=== PATIENT | male | born 2005 | race Caucasian/White ===

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

== ENCOUNTER 2024-07-01 15:14 | Outpatient (REF) | payer OTHER, SELFPAY ==
--- OUTSIDE RECORDS SUMMARY | 2024-07-01 15:19 | XMS_ITS | Encounter Summary ---
Author Organization [facility] Address [address] [place] [phone] Phone Care Team Providers Care Siderographer Name Role Phone Rhonda Frank MD Primary Care Provider Encounter Details Date Type Department Care Team (Late st Contact Info) Description 04/20/2011 Documentation [facility] [place] Family Medicine [address] [place], [place] [id number] Family Medicine, Physician [address], [place] [phone] Social History Tobacco Use Types Packs/Day Years Used Date Smoking Tobacco: Never Assessed Sex and Gender Information Value Date Recorded Sex Assigned at Not on file Legal Sex Male 5:21 PM EDT Gender Identity Not on file Sexual Orientation Not on file documented as of this encounter Plan of Treatment Not on file documented as of this encounter Visit Diagnoses Not on filedocumented in this encounter Care Teams Siderographer Relationship Specialty Start Date End Date Rhonda Frank MD [address] [place] [address] PCP - General Pediatrics 08/28/23 Avtar Alcantara MD Consulting Physician Urology 03/12/18 documented as of this encounter
--- OUTSIDE RECORDS SUMMARY | 2024-07-01 15:19 | XMS_ITS | Encounter Summary ---
Author Organization [facility] Address [address] [place] [phone] Phone Care Team Providers Care Eligibility Supervisor Name Role Phone Rhonda Frank MD Primary Care Provider Encounter Details Date Type Department Care Team (Late st Contact Info) Description 10/04/2016 Documentation [facility] [place] [address] [place] [address] Family Medicine, Physician [address] [phone] Social History Tobacco Use Types Packs/Day Years [...] on filedocumented in this encounter Care Teams Eligibility Supervisor Relationship Specialty Start Date End Date Rhonda Frank MD [address] [place] [address] PCP - General Pediatrics 08/28/23 Avtar Alcantara MD Consulting Physician Urology 03/12/18 documented as of this encounter
--- OUTSIDE RECORDS SUMMARY | 2024-07-01 15:19 | XMS_ITS | Encounter Summary ---
Author Organization [facility] Address [address] [place] [phone] Phone Care Team Providers Care Customer Consultant Name Role Phone Rhonda Frank MD Primary Care Provider Encounter Details Date Type Department Care Team (Late st Contact Info) Description 10/04/2011 Documentation [facility] [place] Family Medicine [address] [place], [place] [phone] Family Medicine, Physician [address], [place] [phone] Social History Tobacco Use Types Packs/Day Years [...] on filedocumented in this encounter Care Teams Customer Consultant Relationship Specialty Start Date End Date Rhonda Frank MD [address] [place] [address] PCP - General Pediatrics 08/28/23 Avtar Alcantara MD Consulting Physician Urology 03/12/18 documented as of this encounter
--- OUTSIDE RECORDS SUMMARY | 2024-07-01 15:19 | XMS_ITS | Clinical Summary ---
Author Organization [facility] Address [address] [place] [id number] Phone Care Team Providers Care Reticle Printer Name Role Phone Rhonda Frank MD Primary Care Provider Allergies No known active allergies Medications clindamycin 1 % gel 4 Active levETIRAcetam 750 MG tablet Take 750 mg by mouth. 4 Active minocycline 50 MG capsule 4 Active levETIRAcetam 100 MG/ML solution GIVE 6ML'S TWICE A DAY 6 7 06/03/19 25 Discontinued minocycline 100 MG capsule Take 100 mg by mouth 2 (two) times a day. 06/03/19 25 Discontinued amoxicillin 500 MG tabletIndicatio ns:Helicobacter pylori (H. pylori) infection 2 pills twice daily for 14 days 56 tablet 4 06/03/19 25 Discontinued pantoprazole 40 MG EC tabletIndicatio ns:Helicobacter pylori (H. pylori) infection TAKE 1 TABLET BY MOUTH EVERY DAY 90 tablet 4 06/03/19 25 Discontinued Active Problems Patient Care Coordination No te Formatting of this note migh t be different from the original. Seen Neuro 03/03/2024 f/u 1 year. Was previously referred to have a Neuropsychology assessment. This was done 12/2021. A CTR was started. Advised to do a health care proxy- guardianship and apply for DDS. See full report for recommendations. Rosemarie Dougherty Consult is 06/23/24 at 11 am and testing is at 06/29/24 at 9am. Mom is aware via text confirmation He graduated High School and is in a transitional program until age 20 Seen Derm 11/27/2022 f/u in three months-had a f/u that was canceled on 04/01/2023. Notes requested -Dr Verdin Referred to general surgery by Velvet for neck abscess. Initial appt 11/2022 - Last appt 03/12/2023. Notes to be sent over. Seen Cardiology 07/02/2022 f/u in 5 2027 years with an adult Production Proofreader- Mariann Pacheco 07/12/2022 hearing evaluation- new hearing aids will be ordered f/u 1 year Rita Nicolas. Picked up hearing aids in November 2022. No appts pending. Seen [facility] 01/2022 f/u prn -Angie Flanagan. No current issues per mom Ophthalmology seen Nader 12/2021 f/u 2 years 2023- nothing scheduled and now he is booking into September 2024. Genetics appt 2022 follow up 1-2 years adult hematology 01/29/24 f/u 6 months with CBC done prior to appt Pt was last seen by Dr Pillai on Apr 13. Will f/u with pt in one year. Pt has new hearing aides. has an appt with dentist in August. --- Ivan 08/19/2019 Dr Pillai , next appt is Apr 13 at 4:30pm Dr Serna Jan, next appt is Jul 06, 2019 at 2pm, Dr Cuellar 2017 next appt is Apr 07, 2019 at 3:20pm [facility] Urology last appt was 2017, next appt is May 25, 2019 at 3:30pm appt will be with Dr Silva. [facility] Neuromuscular clinic Dr Adams last appt was Mar 2018. Had a appt in Feb and no-showed. Next appt is Jun 04, 2019 at 2:15pm Dr Mcconnell last seen November 2017, next appt is Jun 01, 2020 at 3:00pm. Sai was seen September 2018, was approved for new hearing aides. It was recommended that Chele have an Educational Audiology Assessment. Saw dentist within the last 6 months. (Narcisa Velasquez dentist for cleaning) Next appt should be September 2019. Appt dates will be mailed to rocky. Ivan 03/2019 Problem Noted Date Diagnosed Date Class 1 obesity 02/04/2024 Idiopathic thrombocytopenic purpura 01/07/2024 Overview (01/07/2024): Hospitalized 12/26 - 12/2023 for low platelets and purpura - initial plt >2000 - rec'd steroids and IVIG in hospital To follow up with adult hematology Dr Baez Assessment & Plan (06/03/2024 12:32 PM EST): Has done well over the past 6 months with no recurrence Follow up with Dr Baez in July per [facility] Assessment & Plan (01/07/2024 8:56 AM EDT): Labs today Ok to start the transitional program - note given Follow up with hematology 01/29/24 as scheduled Bicuspid aortic valve 07/07/2022 Overview (01/02/2023): 07/05/21: Noted by Cardiology for 1st time. Valve functioning normally.No stenosis or insuff. Follow up in 5 years ~ 2026 with adult cardiology. 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 Evaluated by Dr. Verdin - maintained on 1% clindamycin gel and 10% Benzoyl Peroxide topically. Assessment & Plan (06/03/2024 12:32 PM EST): Much better - follows with dermatology - rocky feels that a lot of meds given to Chele when hospitalized for the ITP helped with his scalp Assessment & Plan (05/16/2023 1:17 PM EST): Followed by Dr. Verdin. The last note I have from him is 05/31/2022. The plan was follow-up in 3 months. Mom says she was seen this past fall. Patient is on minocycline twice daily Patient was seen by general surgery in February for an I&D of a neck abscess. He had packing placed and then removed in 03/03/2023. Assessment & Plan (05/07/2022 10:57 AM EST): Followed by Dr Verdin last seen in Mar. Minocin BID for scalp. Mother stopped clinda gel with BPO BID to scalp because it was making his scalp change color. Has follow up with Derm in May Mother would like another opinion. Would like referral to derm at [facility] Assessment & Plan (11/09/2020 6:23 PM EDT): Will treat with minocycline and referring to dermatology for more definitive management such as humira. Continue minocycline (previously prescribed, 100 mg daily and if worsens increase to 100 mg BID. Assessment & Plan (10/15/2020 8:13 PM EDT): Consulted with [facility] who advised that pt see a Dermatology center (ie [facility] due to insurance) due to the complexity of chronic inflammation condition; she recommends that he be referred out for possible Humira treatment or similar agent if he is a candidate; in the interim use Minocycline again; discussed w/ mom briefly referral to derm specialist for higher level of treatment option; will discuss w/ PCP Dr. 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 Followed by Oswaldo No need for surgery at this time. P.T. recommended for stretching. At higher risk for hip arthritis as he ages Assessment & Plan (05/16/2023 1:16 PM EST): Was followed by Yuliet but has not been seen in years. Mom reports that follow-up with them as as needed only Assessment & Plan (05/07/2022 10:48 AM EST): Follow[facility] at [facility] Assessment & Plan (08/24/2020 11:34 AM EDT): Complaining more of his hips & legs. [facility] Due for follow up Family will schedule Assessment & Plan (08/19/2019 1:37 PM EDT): Due for FU at 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 No treatement recommended at this time due to Pt being asymptomatic Ortho recommends Pt stay physically active (adaptive basketball) & do P.T & stretching if he would be willing to do Assessment & Plan (05/30/2017 2:30 PM EST): Last seen by Dejan 11/2016 Seen by Dayana 2017 - no longer going. Has exercises at home Epilepsy 09/05/2016 Overview (01/07/2024): Presented to [facility] in Status epilepticus 08/28/16. Needed versed. Admitted over night in PICU. EEG showed 1 brief burst of right parietal spike & wave epileptiform discharge. Pt loaded with Keppra & sent out on Keppra 400 mg BID. Dose increased to 600 mg BID 02/2017 after abnormal EEG 12/2023 - change keppra from liquid to tablet form - level to be drawn in office and has neurology follow up for later this fall Assessment & Plan (06/03/2024 12:29 PM EST): Follow up with neurology Assessment & Plan (01/07/2024 8:54 AM EDT): To have keppra level done today and will follow up with neurology Assessment & Plan (05/16/2023 1:13 PM EST): Has transition to adult neurology. Had a virtual visit with Dr. Boogie on 12/28/2022. Reported no seizures in 6 years. On Keppra 600 mg twice daily. Follow-up with neurology in December of this year. Assessment & Plan (05/07/2022 10:51 AM EST): Followed by Neurology. Last seen this past summer. On Keppra 600 mg BID follow up in 1 year with Adult neurology Assessment & Plan (08/24/2020 11:44 AM EDT): On Keppra 600 mg(6 ml) BID , No longer taking pyridoxine Due for follow up with Dr John. Last seen 08/2018 No Sz in years Assessment & Plan (08/19/2019 1:35 PM EDT): Last note from Dr Salud John 08/19/18. On Keppra 600 mg(6 ml) BID & Pyridoxine 50 mg QD Needs FU soon. Patient's mother not sure when he should be seen No issues - no sz Assessment & Plan (06/09/2018 2:54 PM EST): Last note from Dr John from 02/04/18. Follow up this month Keppra 600 mg BID & pyridoxine 50 mg QD Had Sz in Jan 2018 & Keppra level was 0. Pt was staying with [facility] & it was clear he was not getting his meds consistently Pt was in [facility] ER 05/29/18 with Sz - Pt had not had Keppra for at least 48 hours prior to Sz due to Ins issues Assessment & Plan (05/30/2017 2:25 PM EST): On Keppra. Dose increased to 600 mg BID (from $00 mg BID) after EEG 03/07/17 Mom not sure when Neuro FU is No Sz activity Assessment & Plan (02/27/2017 12:20 PM EDT): Neurology has reached out to family & scheduled EEG 03/07/17. They will see him some time after that or adjust his seizure meds. 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 Possible T7/8 fusion. Butterfly vertebra T9. Followed at [facility]. Was referred to Neurosurg for ? Chairi 1 malformation based on MRI Head. Neurosurg felt he did not have Chiari 1 but did order MRI spine which also appeared normal - slt possibility of tethered cord ( anterior position of filum) Assessment & Plan (06/03/2024 12:40 PM EST): Followed by Dejan in the past No back pain today and nothing in the recent past Assessment & Plan (05/16/2023 1:14 PM EST): Has not been seen at [facility] in years. Follow-up is as needed only per mom Assessment & Plan (05/07/2022 10:51 AM EST): Followed at [facility] Assessment & Plan (08/24/2020 11:35 AM EDT): Mother to schedule follow up at [facility] Assessment & Plan (08/19/2019 1:36 PM EDT): Followed by [facility] Patient's mother does not know when last seen - she thinks he is due soon Assessment & Plan (06/09/2018 3:05 PM EST): Followed at [facility] Assessment & Plan (05/30/2017 2:27 PM EST): Followed by Dejan by ortho (last seen 11/2016) & urology (last seen 01/2017) Encounter for counseling for care management of patient with chronic conditions and complex health needs using nurse-based model 06/29/2014 Assessment & Plan (05/16/2023 1:16 PM EST): Met with medical home hospice aide, you Laws Assessment & Plan (08/24/2020 12:28 PM EDT): Met with [facility], you Pepe Medical home hospice aide will help the family set up follow-up with audiology, ophthalmology, [facility], neurology, endocrinology and possibly genetics. Chele needs follow-up with cardiology in 2022 Manual need follow-up with the dermatology clinic at [facility] in 1 month Assessment & Plan (06/23/2020 5:07 PM EST): MEDICAL INSURANCE OFFICE SUPERVISOR, Dariel Napier, is working today on arranging follow up with welding machine operator arc or [facility] Assessment & Plan (12/17/2019 10:09 AM EDT): Family met with MEDICAL INSURANCE OFFICE SUPERVISOR, you Pepe Assessment & Plan (05/30/2017 2:30 PM EST): Met with [facility] today Hypotonia 04/28/2009 Overview (04/01/2017): Gets PT in school Assessment & Plan (08/24/2020 12:18 PM EDT): No more P.T. due to being remote only for school. Got P.T. in school Offered to refer to outpatient physical therapy but mom prefers to wait to see what the [facility] provider recommends at his follow-up appointment Assessment & Plan (05/30/2017 2:33 PM EST): Mom not sure if still getting P.T. In school. She thinks it was stopped Intellectual functioning disability 04/28/2009 Overview (03/08/2022): In [employer] classroom at [employer]. Full SPED 12/2021: Psychology eval. Meets criteria for Intellectual disability - severe. Mother should apply to become guardian. He should remain in school with IEP till years of age Assessment & Plan (06/03/2024 12:28 PM EST): Involved with transitional program in [place] thru the school Mom started to do paperwork for guardianship but has not completed it - I urged her to do so and offered any assistance if needs medical information Assessment & Plan (05/16/2023 1:12 PM EST): Graduated out of high school but is in transition program till age 20. Significant intellectual functioning disability. Mom has been advised about getting guardianship by multiple providers. Assessment & Plan (05/07/2022 10:51 AM EST): Neuropsych eval done summer 2021. Working on Guardianship with DDS Assessment & Plan (08/24/2020 11:39 AM EDT): Remote learning - struggling due to his intellectual disability [employer] Class[employer] Mother waiting on in-person Assessment & Plan (06/09/2018 2:55 PM EST): Full SPED at [facility] Assessment & Plan (05/30/2017 2:20 PM EST): Doing well in school. Full SPED support in place VSD (ventricular septal defect) 04/28/2009 Overview (07/07/2022): Sees Dr Reyez. Closure of his VSD 01/2005. [facility]. All well. Follow up in 2022. No restrictions. No need for SBE prophylaxis. 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 Reyez, on 07/02/2022. New finding of bicuspid aortic valve with fusion of right and left coronary cusps but no evidence of stenosis or regurgitation. Follow-up in 2027. Will need transitioning to adult cardiology at that time. Assessment & Plan (05/07/2022 10:47 AM EST): Due for follow up 2022 Assessment & Plan (08/24/2020 11:44 AM EDT): Due for cards FU 2022 No need for SBE prophylaxis Assessment & Plan (08/19/2019 1:37 PM EDT): Due for cards FU 2022 No need for SBE prophylaxis Assessment & Plan (06/09/2018 2:51 PM EST): Seen by Cards 01/2018 - stable Follow up in 5 years No need for SBE prophylaxis Assessment & Plan (05/30/2017 1:59 PM EST): Last Cardiology eval 01/2013. 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 + gene testing in 2010 Dr Snider felt could hold on immunoglobulins unless sick a lot. Immune defic can be seen in adolescents (60-80% WITH IGA DEFIC & 50% with IgG defic) with KS Spine films 2010: Likely T1-T2 fusion, possible T7-T8 fusionPartial Butterfly Vertebra T9. Referred to [facility] (2015) Hypodontia ( missing teeth) - followed by Dentist. Will get implants S/P VSD & anal atresia repair Sensorineural Hearing loss - has hearing aides FU with genetics yearly 12/10/19: GH stim test done by endo was normal Seen by Endo for short stature 03/2017. Has been seen previously by them for same. Growth factors normal. They were going to repeat bone age. No studies looking at GH in Kids with Kabuki. At this time no GH. FU in 1 year Per Genetics consult 2022: If needing anything beyond local anesthesia should be cleared by anesthesiologist. Children with kabuki syndrome can have issues with intubation due to abnormal airways. There also can be some issues related to cardiac problems, immune dysfunction, and hypotonia. Assessment & Plan (06/03/2024 12:25 PM EST): Per Genetics consult 2022: If needing anything beyond local anesthesia should be cleared by anesthesiologist. Children with kabuki syndrome can have issues with intubation due to abnormal airways. There also can be some issues related to cardiac problems, immune dysfunction, and hypotonia. Also plan on follow up 1 - 2 years in 2022 so will do referral for 2024 evaluation for Chele Assessment & Plan (05/16/2023 1:50 PM EST): Was seen by genetics on 10/23/2022. Neuropsych evaluation was done by Dr. Dougherty in 2021. Guardianship was discussed with mom and she were going to work on that. Mom does not have guardianship yet. Mom is also filled out paperwork for DDS Genetics was following CBC and thyroid function tests. I do not have a copy of the results. Per Genetics consult 2022: If needing anything beyond local anesthesia should be cleared by anesthesiologist. Children with kabuki syndrome can have issues with intubation due to abnormal airways. There also can be some issues related to cardiac problems, immune dysfunction, and hypotonia. Patient is supposed to be followed by welding machine operator arc since children with kabuki syndrome and a higher risk for immunodeficiency. Patient used to be seen but pediatric infectious disease but care was [facility] Patient has not been seen in years. Because he has been having issues with scalp infection and a neck abscess I am strongly encouraging mom to contact Dr. Gupta and get him seen. Patient has hypodontia as part of his KS. Patient needs follow-up with a dentist who specializes in children/teens with developmental delay Our medical home care coordinating team will work with Chele's mother to connect him with an adult medical provider. Since he will be 18 years of age this summer it is time for us to transition his care. Assessment & Plan (05/07/2022 10:47 AM EST): Neuropsych eval done this year. Mother to work on guardianship. Family decided against growth hormone Saw neurology 11/2021. On Keppra 600 mg BID. follow up with Adult neurology in 1 year. Needs follow up with Genetics in 2022. Last seen 10/2020 Due for Cardiology eval 2022 Seen at [facility] 01/2022. Stopped AFOs - no help & he was not wearing them as much as expected. Did not see patient - no leg pains at this time. Is supposed to see welding machine operator arc yearly. Last note from Pedi ID was in 2018 - they transferred care to Dr Gupta, welding machine operator arc/caustic loader at [facility]. Has not been seen. MEDICAL INSURANCE OFFICE SUPERVISOR will help mother to schedule Assessment & Plan (08/24/2020 12:26 PM EDT): Needs yearly follow up with welding machine operator arc. Last seen by [facility]i ID 04/2019. Was to see Dr Gupta ([facility]) last year but never happened due to Coronavirus pandemic Was seen by endocrinology September 2019 by telehealth visit. They ordered growth hormone stimulation test that was completed 11/30/2019 and was normal. They did want to see Chele back in their clinic to evaluate pubertal stage and do an x-ray of his hand for bone age. This appears not to have been done. We will asked the medical home hospice aide to help set up follow-up with endocrinology. Assessment & Plan (06/23/2020 5:07 PM EST): MEDICAL INSURANCE OFFICE SUPERVISOR trying to set up yearly FU with welding machine operator arc Chele is at risk for immune deficiencies due to his Kabuki syndrome Children with Kabuki synd are at increased risk for humoral immune defects (IGA defic in 60-80% & IgG defic in up to 50 %) & also low memory B & T cells, CVID phenotypes including autoimmune cytopenias Last seen by [facility]i [facility] 2018 Assessment & Plan (12/17/2019 10:09 AM EDT): Endo is evaluating if patient would be candidate for GH Assessment & Plan (08/19/2019 1:32 PM EDT): Seen by Pedi ID 04/13/19 for yearly FU - Children with Kabuki synd are at increased risk for humoral immune defects (IGA defic in 60-80% & IgG defic in up to 50 %) & also low memory B & T cells, CVID phenotypes including autoimmune cytopenias & Thyroid disease. Repeat labs done. FU in 1 year - either with ID or with Dr Gilson Gupta to follow his immunology status Last Endo note 01/2018 Assessment & Plan (06/09/2018 3:36 PM EST): Due for Genetics FU 02/2019 Was to seen by [facility] 04/14/2018 For screening for immune defic Had normal IgG, IgA, IgM & IgE. Normal specific antibody titers to dip,tet & strep pneumo. Mildly low CD4 & CD8 t-cells with elevated ratio but normal mitogen stim & antigen stim to mitch ID felt that Pt had normal humoral & cellular immunity at this time Follow up with ID in 1 year ID suggested screening stools for Giardia, O & P due to some pudding like stools. Mom says it was never checked & she is interested in getting it done now Missed FU appt with Endo this month - mom to reschedule. Endo following to see if should get GH Or testosterone per mom. Pt is just starting puberty Assessment & Plan (05/30/2017 2:42 PM EST): Seen by Endo 02/2017 for Short Stature assoc with his José Miguel. Bone age delayed so potential of more growth. No GH recommended at this time. They will see him back in 1 year Saw genetics 01/2017 - follow up in 1 year Genetics also gave family contact info on a study being done on children with Kabuki syndrome at [facility] _ family has not made contact yet but is interested Assessment & Plan (02/27/2017 12:18 PM EDT): Followed by genetics Hearing loss of both ears Overview (04/01/2017): Followed by ENT. Has [employer] hearing aides Assessment & Plan (06/03/2024 12:26 PM EST): Referral done to [facility] for hearing aides/HT - Chele isn't wearing his hearing aides in general he tells me Assessment & Plan (05/16/2023 1:12 PM EST): Has hearing aids. Does not wear them at school. Needs follow-up with audiology. Assessment & Plan (05/07/2022 10:50 AM EST): Needs follow up at [facility] - last seen 2018. Wears hearing aides at Home but not at school Assessment & Plan (08/24/2020 11:36 AM EDT): Lost one hearing aide - waiting for replacement Due for audiology follow up Assessment & Plan (08/19/2019 1:33 PM EDT): Has bilateral hearing aides but does not like to wear them Last audio eval 09/2018. Followed at [facility] yearly Has new hearing aides - still does not like Assessment & Plan (06/09/2018 2:37 PM EST): Due for Audiology FU in Jun Assessment & Plan (05/30/2017 2:19 PM EST): Followed at [facility]. Due for Follow up. Needs new batteries for hearing aides Does not use Hearing aides as much as he should Has not seen ENT in years. Had PET in past Ptosis Overview (05/30/2017): OS. Followed by Dr Doe. Wears glasses Assessment & Plan (05/16/2023 1:13 PM EST): Followed by Dr Doe. Has glasses. Needs follow-up Assessment & Plan (05/07/2022 10:52 AM EST): Has appointment with Dr Doe 12/13/2022. Followed yearly. Seen this past summer Has glasses Assessment & Plan (08/24/2020 11:42 AM EDT): Cleared for surgery for 01/04/20 to help correct ptosis left eye but that never happened Glasses are broken Needs follow up with Dr Doe Assessment & Plan (12/17/2019 10:04 AM EDT): Cleared for surgery for 01/04/20 to help correct ptosis left eye Assessment & Plan (08/19/2019 1:34 PM EDT): Due for eye eval ? Summer 2019 or 2020 Patient's mother not sure Has new glasses - will wear them Assessment & Plan (06/09/2018 3:04 PM EST): Wears glasses Sees ophthal yearly Assessment & Plan (05/30/2017 2:21 PM EST): Due for FU this year. Family to schedule Resolved Problems Problem Noted Date Diagnosed Date Resolved Date Helicobacter pylori (H. pylori) infection 02/04/2024 06/03/2024 Overview (02/04/2024): + fecal H.pylori antigen at [facility] during hospitalization Assessment & Plan (02/04/2024 5:21 PM EDT): Will treat with triple therapy - PPI, amoxil and macrolide for 14 days Will stop the minocin while on the above therapy Recheck stool antigen in 3 - 4 weeks for test of cure Abdominal pain 06/09/2018 06/09/2018 Overview (06/09/2018): endoscopy & colonoscopy by Dr Schmidt 02/2014 showed chronic gastritis. H. Pylori neg. [facility] Assessment & Plan (06/09/2018 3:08 PM EST): No current issues Counseling and coordination of care 11/26/2017 08/24/2020 Assessment & Plan (08/19/2019 11:57 AM EDT): Followed by MEDICAL INSURANCE OFFICE SUPERVISOR at this office Assessment & Plan (06/09/2018 2:52 PM EST): Met with Makenzie Geronimo [facility], today Mom missed FU appt with Endo this month Intermittent asthma 04/28/2009 06/09/19 19 Overview (04/01/2017): Albuterol prn Assessment & Plan (06/09/2018 3:26 PM EST): No issues in years Assessment & Plan (05/30/2017 2:17 PM EST): No issues. 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 Has not been seen in years Assessment & Plan (08/24/2020 11:44 AM EDT): No issues Has not seen GI in years Assessment & Plan (06/09/2018 3:06 PM EST): Has pudding like stools Has not seen GI in years Assessment & Plan (05/30/2017 2:30 PM EST): No issues No longer seeing GI. Has not been seen in years Daytime enuresis 08/24/2020 Overview (05/30/2017): Family reports dribbling of urine & halting stream when urinating. renal US normal 2014. Followewd by Urology since 02/2015. Also seen by neurosurg - Had MRI spine that basically looked normal (07/2016) - slight possibility that forward position of filum could cause urologic issues ( ? tethered cord). He had urodynamic studies Done 12/2016 by urologist at [facility]. 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 Last seen 11/2017 - urodynamic study was OK but low volume so not sure if could miss something Mom says she gave up on that & has not followed up [facility] urology may want to try ditropan Mom will schedule FU Assessment & Plan (05/30/2017 2:32 PM EST): Seen by urology 01/2017. They want to try to repeat uroflow study. They are not sure that the study will be successful due to sensory & devel issues. They will see him back after the study to discuss Had study repeated but mom does not know result. Not sure about FU Assessment & Plan (02/27/2017 12:21 PM EDT): Being followed by Dr Sanchez (neuro surg) - Had MRI spine to r/o tethered cord - Still not completely clear. Also followed by Urology at [facility] - recently had urodynamic studies - also not clear Encounters Date Type Department Care Team Description 06/22/[address] [address] Louann Hatch MA reminer call for dev testing 06/05/2024 Patient Outreach [facility] [address] [place] [address] Louann Hatch MA Care Plan 06/03/2024 10:00 AM EST Office Visit [facility] [address] [place] [address] Rhonda Frank MD Well adult exam (Primary Dx); BMI 31.0-31.9,adult; Encounter for screening examination for sexually transmitted disease; Dietary counseling and surveillance; Exercise counseling; Kabuki syndrome; Other specified hearing loss of both ears; Intellectual functioning disability; Nonintractable epilepsy without status epilepticus, unspecified epilepsy type; Idiopathic thrombocytopenic purpura; VSD (ventricular septal defect); Need for vaccination; Dissecting cellulitis of scalp; Class 1 obesity; Congenital vertebral anomaly 06/03/2024 Telephone [facility] [address] [place] [address] Maxine Wang neuropsych referral 04/20/2024 Telephone [facility] [address] [place] [address] Rhonda Frank MD Forms/questionnaires from Last 3 Months Immunizations Immunization Administration Dates Next Due COVID-19 Pfizer, bivalent, 12+ years 05/07/2022 COVID-19 Vaccine Moderna, se asonal, 12+ years 05/16/2023 DTaP 5 12/09/2007, 6,08/08/2004,04/27,02/14/2004 H1N1 04/28/2009 HPV Vaccine 9 Valent 09/05/2015,04/27/2015,02/24 Hep A, ped/adol 01/06/2015,12/17/2013 Hep B, ped/adol 08/08/2004,04/27/2004,02/14/2004 Hib (HbOC) 03/13/2005, 5,04/27/2004,02/13 IPV 12/09/2007, 5,04/27/2004,02/13 Influenza Split 03/11/2013,01/24/2011,04/19/2010 Influenza, injectable, quadrivalent 02/13/2016 Influenza, injectable, quadr ivalent, preservative free 05/16/2023,05/07/2022,01/08/2020,07/01,03/13/2018,01/07/2017,01/06/2015 Influenza, injectable, trivalent 009,02/12/2008,03/07/2006,03/13,02/14/2005 Influenza, injectable, triva lent, preservative free 06/03/2024 MMR 12/09/2007,12/05/2004 Meningococcal Conj (Menactra) MCV4P 12/17/2019,1 Pneumococcal Conjugate 03/13/2005,2004,04/27/2004,02/13 Tdap 02/24/2015 Varicella 12/09/2007,12/05/2004 Family History Medical History Relation Name Comments ADD / ADHD Brother leigh Argueta JR Crohn's disease Brother leigh Argueta JR Anxiety disorder Father Leigh Argueta No Known Problems Mother claude Mcmahon Diabetes Other great grand father Relation Name Status Comments Brother leigh Argueta JR Alive Father Leigh Argueta Alive Mother claude Mcmahon Alive Other great grand father Alive diabetes Sister Binta Argueta Alive Social History Tobacco Use Types Packs/Day Years Used Date Smoking Tobacco: Never Assessed Hunger/Food Answer Date Recorded In the last 12 months, did y ou or your family ever eat less than you felt you should because there wasn't enough money for food? No 06/02/2024 Stable Housing Answer Date Recorded Are you worried that in the next 2 months you may not have stable housing? No 06/02/2024 Transportation Concerns Answer Date Rec orded In the last 12 months, have you or your family ever had to go without healthcare because you didn't have a way to get there? No 06/02/2024 Hazards in Home Answer Date Recorded Think about the place you li ve. Do you have problems with any of the following? Pests (mice or roaches), mold, no/not working smoke detectors, water leaks, no window guards. No 2024 Financing Utilities Answer Date Recorde d In the last 12 months, has t he electric, gas, oil, or water company threatened to shut off your services in your home? No 06/02/2024 Safety at Home Answer Date Recorded Are you or your family worried about feeling saf e in your home? No 06/02/2024 Outside Support Answer Date Recorded Do you feel that you need mo re support from other people or programs to help you care for yourself or your family? No 06/02/2024 Understanding Health Concerns Answer Da te Recorded Do you need help understandi ng your or your child's healthcare needs (diagnosis, medications, plan, etc.)? No 06/02/2024 Financing Health Concerns Answer Date R ecorded In the last 12 months, was t here a time when your child needed to see a doctor or get medications or supplies but could not because of cost? No 06/02/2024 Missing School or Work Answer Date Guy rded Did you or your child miss s chool or work because of a health problem that could have been avoided? No 06/02/2024 Child Education Answer Date Recorded Do you have concerns about y our/your child's learning or behavior in school, preschool, or daycare? No 06/02/2024 Sex and Gender Information Value Date Recorded Sex Assigned at Not on file Legal Sex Male 5:21 PM EDT Gender Identity Not on file Sexual Orientation Not on file Last Filed Vital Signs Vital Sign Reading Time Taken Comments Blood Pressure 123/78 06/03/2024 10:12 AM EST Pulse 80 02/04/2024 2:37 PM EDT Temperature 36.3 ??C (97.3 ??F) 02/04/2024 2:37 PM ED T Respiratory Rate - - Oxygen Saturation 98% 07/18/2022 9:52 AM EST Inhaled Oxygen Concentration - - Weight 71.3 kg (157 lb 3.2 oz) 06/03/2024 10:12 AM EST Height 151.1 cm (4' 11.5 ) 06/03/2024 10:[address] Body Mass Index 31.22 06/03/2024 10:12 AM EST Plan of Treatment Health Maintenance Due Date Last Done Comments Men B Vaccine (1 of 2 - Standard) 2019 COVID-19 Vaccine (5 - 2023-2 5 season) 2024 05/16/2023, 05/07/2022, 10/15/2020, Additional history exists DTaP,Tdap,and Td Vaccines (7 - Td or Tdap) 02/24/2025 02/24/2015, 12/09/2007, 07/04/2005, Additional history exists Hepatitis B Vaccines Completed 08/08/2004, 04/27/2004, 02/14/2004 HIB Vaccines Completed 03/13/2005, 01/2005, 04/27/2004, Additional history exists Pneumococcal Vaccine Completed 03/13/2005, 08/08/2004, 04/27/2004, Additional history exists IPV Vaccines Completed 12/09/2007, 07/12, 04/27/2004, Additional history exists MMR Vaccines Completed 12/09/2007, 12/05/2004 Varicella Vaccines Completed 12/09/2007, 12/05/2004 Hepatitis A Vaccines Completed 01/06/2015, 12/18/19 14 HPV Vaccines Completed 09/05/2015, 04/12, 02/24/2015 Meningococcal Vaccine Completed 12/17/2019, 015 Influenza Vaccines Completed 06/03/2024, 0 05/16/2023, 05/07/2022, Additional history exists Goals Goal Patient Goal Type Associated Problems Recent Progress Patient-Stated? Author Patient has specialist visit scheduled within recommended time frame General Louann Capellan MA Note: Mother will schedule a follow up appointment with Dr. Gupat. [facility] [address] [phone] Mom will book follow up Patient has specialist visit scheduled within recommended time frame Louann Shaver MA Note: Mother will book an appointment with a new Dentist and Robotics Testing Technician. Genetics recommended [facility] [address] [facility] [place] [phone] mom reminded again to book appointment. Patient has specialist visit scheduled within recommended time frame General Louann Capellan MA Note: Mother will book an appointment with an Robotics Testing Technician. [facility] [address] [address] [facility] [address] [phone] Patient/caregiver will connect with recommended community resources Louann Shaver MA Note: Mom has the DDS application. She will complete it with Chele and submit it for more resources for Chele. Chele must now sign it as he is over 18. Mom is working on guardianship. She has the paperwork from Rosemarie Dougherty. Chele had an evaluation 12/2021. A CTR was started. Mom will go to probate court and start the process for Guardianship. Farhat as noted in her evaluation has already completed her portion of the paperwork. Mom will check with the courts ( probate family court) to make sure it is still active. Mom will then call [facility] and make and appointment with our social science analyst Meron. Once that is completed and that section of the paperwork is done and appointment is needed with Dr Matias. Mom and I discussed this in detail. This is a brief summary for her notes. This is in process. Mom still working on getting a child day care provider for Chele and mom can not be the leasing manager and the legal guardian. PCP entered new referral for Farhat. Mom will follow up on this Patient has specialist visit scheduled within recommended time frame General Louann Capellan MA Note: Schedule follow up appointment with Dr. Boogie [facility] [phone] option 6 to reschedule. [address] Mom will book Neurology appointment Patient has specialist visit scheduled within recommended time frame General No Louann Hatch MA Note: Schedule follow up appointment with Dr. Serna Genetics for next available, Due now. New referral sent by PCP 05/2024 Patient has specialist visit scheduled within recommended time frame General No Louann Hatch MA Note: Schedule a follow up with Dr. Verdin Dermatology. Due now. [phone] Patient has specialist visit scheduled within recommended time frame General No Louann Hatch MA Note: Schedule a follow up with Speech and Hearing. Due now. [phone] Mom will keep appointment. He will need a hearing evaluation. He is not wearing hearing aids. Patient has specialist visit scheduled within recommended time frame General No Louann Hatch MA Note: Schedule a follow up with Dr. Doe- Ophthalmology Due now. His office is booking into September 2024 so call now. [phone] Patient has specialist visit scheduled within recommended time frame General Louann Capellan MA Note: Mom will schedule a follow up with Hematology for 07/2024. Will need repeat labs prior to the appointment. Dr. Bradford [address] [place] [address] Patient/family is comfortable self-managing illnesses and chronic conditions Care Plan Patient/family needs help managing the patient? 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 Shawn has DDS Care Plan Patient/family needs help getting DDS No Louann Hatch MA Note: 2022 sb spoke with mom at the 09/13/2022 visit with sibling. Mom has not completed the DDS application and has not started on the CTR for guardianship given to her by [facility]. Spoke with mom and she will work on the application for DDS Reminded mom again about completing this paperwork. Mom has Guardianship Care Plan Mom does not have Guardianship No Louann Hatch MA Note: Mom is still working on this. Since mom is his caregiver she can not be his guardian. She is working on deciding who can qualify as his caregiver so she can be his legal guardian. [facility] will track new referral sent 05/2024. Mom did not follow through with guardianship. Had the CTR first part completed and stopped process. 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 He needs a follow up. [facility] will track new referral sent 05/2024. Chele is not wearing his hearing aids. Procedures * Due to [place] state law, this organization might not be sharing sensitive test results. Procedure Name Priority Date/Time Associated Diagnosis Comments BRIEF BEHAVIORAL ASSESSMENT - NORMAL(PSC,PHQ9,VANDERBI LT,ETC) Routine 06/03/2024 10:26 AM EST Well adult exam EPSDT - ADDITIONAL SERVICES FOR STATE FUNDED INSURANCE Routine 06/03/2024 10:26 AM EST Well adult exam from Last 3 Months Additional Health Concerns Active Problems Noted Date Diagnosed Date Patient/family needs help ma naging the patient? 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 Will help mom manage care. Will help mom with managing Specialists. Patient/family needs help getting DDS 02/26/2024 Note: Will mail home application for DDS Mom does not have Guardianship 05/09/2022 Insurance C/O [place], [place] [id number] [place] [address] NON PCC [facility] Care Teams Reticle Printer Relationship Specialty Start Date End Date Rhonda Frank MD [address] [place] [address] PCP - General Pediatrics 08/28/23 Avtar Alcantara MD Consulting Physician Urology 03/12/18
--- OUTSIDE RECORDS SUMMARY | 2024-07-01 15:19 | XMS_ITS | Encounter Summary ---
Author Organization [facility] Address [address] [place] [address] Phone Care Team Providers Care Business Services Clerk Name Role Phone Rhonda Frank MD Primary Care Provider Encounter Details Date Type Department Care Team (Late st Contact Info) Description 01/09/2012 Documentation [facility] [place] Family Medicine [address] [place] [address] Family Medicine, Physician [address], [place] [phone] Social History Tobacco Use Types Packs/Day Years [...] on filedocumented in this encounter Care Teams Business Services Clerk Relationship Specialty Start Date End Date Rhonda Frank MD [address] [place] [address] PCP - General Pediatrics 08/28/23 Avtar Alcantara MD Consulting Physician Urology 03/12/18 documented as of this encounter
--- OUTSIDE RECORDS SUMMARY | 2024-07-01 15:19 | XMS_ITS | Encounter Summary ---
Author Organization [facility] Address [address] [place] [address] Phone Care Team Providers Care Cloth Mercerizer Back Tender Name Role Phone Rhonda Frank MD Primary Care Provider [phone] Encounter Details Date Type Department Care Team (Late st Contact Info) Description 09/25/2011 Documentation [facility] [place] Family Medicine [address] [place] [address] Family Medicine, Physician [address] [place], [place] [phone] Social History Tobacco Use Types Packs/Day Years [...] on filedocumented in this encounter Care Teams Cloth Mercerizer Back Tender Relationship Specialty Start Date End Date Rhonda Frank MD [address] [place] [address] PCP - General Pediatrics 08/28/23 Avtar Alcantara MD Consulting Physician Urology 03/12/18 documented as of this encounter
--- OUTSIDE RECORDS SUMMARY | 2024-07-01 15:19 | XMS_ITS | Encounter Summary ---
Author Organization [facility] Address [address] [place] [address] Phone Care Team Providers Care Buckle Stringer Name Role Phone Rhonda Frank MD Primary Care Provider Encounter Details Date Type Department Care Team (Late st Contact Info) Description 06/28/2016 Documentation [facility] [place] [address] [place] [address] Family Medicine, Physician [address] [place], [place] [phone] Social History Tobacco Use Types Packs/Day Years [...] on filedocumented in this encounter Care Teams Buckle Stringer Relationship Specialty Start Date End Date Rhonda Frank MD [address] [place] [address] PCP - General Pediatrics 08/28/23 Avtar Alcantara MD Consulting Physician Urology 03/12/18 documented as of this encounter
--- OUTSIDE RECORDS SUMMARY | 2024-07-01 15:19 | XMS_ITS | Encounter Summary ---
Author Organization [facility] Address [address] [place] [address] Phone Care Team Providers Care Parking Meter Attendant Name Role Phone Rhonda Frank MD Primary Care Provider Encounter Details Date Type Department Care Team (Late st Contact Info) Description 10/01/2012 Documentation [facility] [place] Family Medicine [address] [place] [address] Family Medicine, Physician [address] [place] [phone] Social History Tobacco Use Types Packs/Day Years [...] on filedocumented in this encounter Care Teams Parking Meter Attendant Relationship Specialty Start Date End Date Rhonda Frank MD [address] [place] [address] PCP - General Pediatrics 08/28/23 Avtar Alcantara MD Consulting Physician Urology 03/12/18 documented as of this encounter
--- OUTSIDE RECORDS SUMMARY | 2024-07-01 15:19 | XMS_ITS | Encounter Summary ---
Author Organization [facility] Address [address] [place] [address] Phone Care Team Providers Care Mud Engineer Name Role Phone Rhonda Frank MD Primary Care Provider Encounter Details Date Type Department Care Team (Late st Contact Info) Description 01/19/2015 Documentation [facility] [place] [address] [place] [address] Family Medicine, Physician [address] [place] [phone] Social History Tobacco Use Types Packs/Day Years [...] on filedocumented in this encounter Care Teams Mud Engineer Relationship Specialty Start Date End Date Rhonda Frank MD [address] [place] [address] PCP - General Pediatrics 08/28/23 Avtar Alcantara MD Consulting Physician Urology 03/12/18 documented as of this encounter
--- OUTSIDE RECORDS SUMMARY | 2024-07-01 15:19 | XMS_ITS | Encounter Summary ---
Author Organization [facility] Address [address] [place] [address] Phone Care Team Providers Care Heating Fixture Tender Name Role Phone Rhonda Frank MD Primary Care Provider Encounter Details Date Type Department Care Team (Late st Contact Info) Description 01/02/2017 [place]ation [facility] [place] [address] [place] [address] Family Medicine, Physician [address] [place], [place] [phone] Social History Tobacco Use Types Packs/Day Years [...] on filedocumented in this encounter Care Teams Heating Fixture Tender Relationship Specialty Start Date End Date Rhonda Frank MD [address] [place] [address] PCP - General Pediatrics 08/28/23 Avtar Alcantara MD Consulting Physician Urology 03/12/18 documented as of this encounter
--- OUTSIDE RECORDS SUMMARY | 2024-07-01 15:19 | XMS_ITS | Encounter Summary ---
Author Organization [facility] Address [address] [place] [address] Phone Care Team Providers Care Calciner Operator Helper Name Role Phone Rhonda Frank MD Primary Care Provider Encounter Details Date Type Department Care Team (Late st Contact Info) Description 04/09/2011 Documentation [facility] [place] Family Medicine [address] [place] [address] Family Medicine, Physician [address] [place], [place] [phone] Social History Tobacco Use Types Packs/Day Years [...] on filedocumented in this encounter Care Teams Calciner Operator Helper Relationship Specialty Start Date End Date Rhonda Frank MD [address] [place] [address] PCP - General Pediatrics 08/28/23 Avtar Alcantara MD Consulting Physician Urology 03/12/18 documented as of this encounter
--- OUTSIDE RECORDS SUMMARY | 2024-07-01 15:19 | XMS_ITS | Encounter Summary ---
Author Organization [facility] Address [address] [place] [address] Phone Care Team Providers Care Press Maintainer Name Role Phone Rhonda Frank MD Primary Care Provider Encounter Details Date Type Department Care Team (Late st Contact Info) Description 08/13/2016 Documentation [facility] [place] [address] [place] [address] Family Medicine, Physician [address] [place] [phone] Social History Tobacco Use Types Packs/Day Years [...] on filedocumented in this encounter Care Teams Press Maintainer Relationship Specialty Start Date End Date Rhonda Frank MD [address] [place] [address] PCP - General Pediatrics 08/28/23 Avtar Alcantara MD Consulting Physician Urology 03/12/18 documented as of this encounter
--- OUTSIDE RECORDS SUMMARY | 2024-07-01 15:19 | XMS_ITS | Encounter Summary ---
Author Organization [facility] Address [address] [place] [address] Phone Care Team Providers Care Facility Rehab Director Name Role Phone Rhonda Frank MD Primary Care Provider Encounter Details Date Type Department Care Team (Late st Contact Info) Description 01/20/2014 Documentation [facility] [place] Medicine [address] [place] [address] Family Medicine, Physician [address] [place], [place] [phone] Social History Tobacco Use Types Packs/Day Years [...] on filedocumented in this encounter Care Teams Facility Rehab Director Relationship Specialty Start Date End Date Rhonda Frank MD [address] [place] [address] PCP - General Pediatrics 08/28/23 Avtar Alcantara MD Consulting Physician Urology 03/12/18 documented as of this encounter
--- OUTSIDE RECORDS SUMMARY | 2024-07-01 15:19 | XMS_ITS | Encounter Summary ---
Author Organization [facility] Address [address] [place] [phone] Phone Care Team Providers Care Curb Builder Name Role Phone Rhonda Frank MD Primary Care Provider Encounter Details Date Type Department Care Team (Late st Contact Info) Description 11/03/2012 Documentation [facility] [place] [address] [place] [address] Family Medicine, Physician [address] [place], [place] [id number] Social History Tobacco Use Types Packs/Day Years [...] on filedocumented in this encounter Care Teams Curb Builder Relationship Specialty Start Date End Date Rhonda Frank MD [address] [place] [address] PCP - General Pediatrics 08/28/23 Avtar Alcantara MD Consulting Physician Urology 03/12/18 documented as of this encounter
--- OUTSIDE RECORDS SUMMARY | 2024-07-01 15:19 | XMS_ITS | Encounter Summary ---
Author Organization [facility] Address [address] [place] [phone] Phone Care Team Providers Care Plate Grainer Name Role Phone Rhonda Frank MD Primary Care Provider Encounter Details Date Type Department Care Team (Late st Contact Info) Description 06/28/2016 Documentation [facility] [place] [address] [place] [address] Family Medicine, Physician [address], [place] [id number] Social History Tobacco Use Types Packs/Day Years [...] on filedocumented in this encounter Care Teams Plate Grainer Relationship Specialty Start Date End Date Rhonda Frank MD [address] [place] [address] PCP - General Pediatrics 08/28/23 Avtar Alcantara MD Consulting Physician Urology 03/12/18 documented as of this encounter
--- OUTSIDE RECORDS SUMMARY | 2024-07-01 15:19 | XMS_ITS | Encounter Summary ---
Author Organization [facility] Address [address] [place] [address] Phone Care Team Providers Care Supervisor Production Department Name Role Phone Rhonda Frank MD Primary Care Provider Encounter Details Date Type Department Care Team ([facility] Contact Info) Description 06/05/2017 Patient Outreach [facility] [address] [place] [address] Denia Matias MD [address] [place] [address] Social History Tobacco Use Types Packs/Day Years [...] on filedocumented in this encounter Care Teams Supervisor Production Department Relationship Specialty Start Date End Date Rhonda Frank MD [address] [place] [address] PCP - General Pediatrics 08/28/23 Avtar Alcantara MD Consulting Physician Urology 03/12/18 documented as of this encounter
--- OUTSIDE RECORDS SUMMARY | 2024-07-01 15:19 | XMS_ITS | Encounter Summary ---
Author Organization [facility] Address [address] [place] [address] Phone Care Team Providers Care Household Worker Name Role Phone Rhonda Frank MD Primary Care Provider [phone] Encounter Details Date Type Department Care Team (Late st Contact Info) Description 08/27/2009 Documentation [facility] [place] [address] [place] [address] Family Medicine, Physician [address], [place] [id number] Social History Tobacco Use Types Packs/Day Years [...] on filedocumented in this encounter Care Teams Household Worker Relationship Specialty Start Date End Date Rhonda Frank MD [address] [place] [address] PCP - General Pediatrics 08/28/23 Avtar Alcantara MD Consulting Physician Urology 03/12/18 documented as of this encounter
--- OUTSIDE RECORDS SUMMARY | 2024-07-01 15:19 | XMS_ITS | Encounter Summary ---
Author Organization [facility] Address [address] [place] [address] Phone Care Team Providers Care Internal Grinder Set Up Operator Name Role Phone Rhonda Frank MD Primary Care Provider [phone] Reason for Visit * Reason Comments Care Plan Encounter Details Date Type Department Care Team ([facility] Contact Info) Description 06/05/2024 Patient Outreach [facility] [place] [address] [place] [address] Louann Hatch PA [address] [place] [address] Care Plan Social History Tobacco Use Types Packs/Day Years [...] on file documented as of this encounter Progress Notes * Louann Hatch MA - 06/05/2024 4:04 PM EST Chele had his PE 06/03/2024. Updating his care plan. New referrals have been entered. [facility] [place] [place]hip again. documented in this encounter Plan of Treatment Not on file documented as of this encounter Goals Goal Patient Goal Type Associated Problems Recent Progress Patient-Stated? Author Patient has specialist visit scheduled within recommended time frame General Louann Capellan MA Note: Mother will schedule a follow up appointment with Dr. Gupta. [facility] [address] [address] Mom will book follow up Patient has specialist visit scheduled within recommended time frame General Louann Capellan MA Note: Mother will book an appointment with a new Dentist and Tree Care Foreman. Genetics recommended [facility] [address] [facility] T[place] [phone] mom reminded again to book appointment. Patient has specialist visit scheduled within recommended time frame General No Louann Hatch MA Note: Mother will book an appointment with an Tree Care Foreman. [facility] [address] [place] [address] [facility] [address] [id number] Patient/caregiver will connect with recommended community resources General No Louann Hatch MA Note: Mom has the DDS application. She will complete it with Chele and submit it for more resources for Chele. Chele must now sign it as he is over 18. Leti is working on guardianship. She has the [...] is still active. Mom will then call [facility] and make and appointment with our psychiatric social worker Meron. Once that is completed and that section of the paperwork is done and appointment is needed with Dr Matias. Mom and I discussed this in detail. This is a brief summary for her notes. This is in process. Mom still working on getting a wound care technician for Chele and mom can not be the studio operator and the legal guardian. PCP entered new referral for [place]. Mom will follow up on this Patient has specialist visit scheduled within recommended time frame General Louann Capellan MA Note: Schedule follow up appointment with Dr. [facility] [phone] option 6 to reschedule. [address] Mom will book Neurology appointment Patient [...] up with Dr. Verdin Dermatology. Due now. [phone] Patient has specialist visit scheduled within recommended time frame General No Louann Hatch MA Note: Schedule a follow up with Speech and Hearing. Due now. [phone] Mom will keep appointment. He will need a hearing evaluation. He is not wearing hearing aids. Patient has specialist visit scheduled within recommended time frame General No Louann Hatch MA Note: Schedule a follow up with Dr. Doe- Ophthalmology Due now. His office is booking into September 2024 so call now. [phone] Patient has specialist visit scheduled within recommended time frame General No Louann Hatch MA Note: Mom will schedule a follow up with Hematology for 07/2024. Will need repeat labs prior to the appointment. Dr. Bradford [address] [place] [phone] Patient/family is comfortable self-managing illnesses and chronic [...] so she can be his legal guardian. [facility] [place] new referral sent 05/2024. Mom [...] November 2022. He needs a follow up. [facility] [place] new referral sent 05/2024. Chele is not wearing his hearing aids. documented as of this encounter Visit Diagnoses Not on filedocumented in this encounter Additional Health Concerns Active Problems Noted Date [...] DDS Mom does not have Guardianship 05/09/2022 documented as of this encounter Care Teams Internal Grinder Set Up Operator Relationship Specialty Start Date End Date Rhonda Frank MD [address] [place] [address] PCP - General Pediatrics 08/28/23 Avtar Alcantara MD Consulting Physician Urology 03/12/18 documented as of this encounter
--- OUTSIDE RECORDS SUMMARY | 2024-07-01 15:19 | XMS_ITS | Encounter Summary ---
Author Organization [facility] Address [address] [place] [address] Phone Care Team Providers Care Compensation/Benefits Specialist Name Role Phone Rhonda Frank MD Primary Care Provider Encounter Details Date Type Department Care Team ([facility] Contact Info) Description 07/02/2017 Patient Outreach [facility] [address] [place] [address] Denia Matias MD [address] [place] [address] Social History Tobacco Use Types Packs/Day Years [...] on filedocumented in this encounter Care Teams Compensation/Benefits Specialist Relationship Specialty Start Date End Date Rhonda Frank MD [address] [place] [address] PCP - General Pediatrics 08/28/23 Avtar Alcantara MD Consulting Physician Urology 03/12/18 documented as of this encounter
--- OUTSIDE RECORDS SUMMARY | 2024-07-01 15:19 | XMS_ITS ---
Care Plan Created on: July 01, 2024 Shawn Argueta : 2005 Sex: Male Author Organization [facility] Address [address] [place] [id number] Phone Care Team Providers Care Pastry Cook Name Role Phone Rhonda Frank MD Primary Care Provider Active Problems Patient Care Coordination No te [...] in 5 2027 years with an adult Velvet Weaver- Mariann Pacheco 07/12/2022 hearing evaluation- new hearing aids will be ordered f/u 1 year Rita Nicolas. Picked up hearing aids in November 2022. No appts pending. Seen [facility] 01/2022 f/u prn -Angie Flanagan. No current [...] appt is Apr 07, 2019 at 3:20pm [facility] Urology last appt was 2017, next appt is May 25, 2019 at 3:30pm appt will be with Dr Silva. [facility] Neuromuscular clinic Dr Adams last appt was Mar 2018. Had a appt in Feb and no-showed. Next appt is Jun 04, 2019 at 2:15pm Dr Mcconnell last seen November 2017, next appt is Jun 01, 2020 at 3:00pm. Gibbs was seen September 2018, was approved for new hearing aides. It was recommended that Chele have an Educational Audiology Assessment. Saw dentist within the last 6 months. (Narcisa Velasquez dentist for cleaning) Next appt should be September 2019. Appt dates will be [facility] Ivan 03/2019 Problem Noted Date Diagnosed Date [...] up with Dr Baez in July per [facility] Assessment & Plan (01/07/2024 8:56 AM EDT): [...] Much better - follows with dermatology - mom feels that a lot of meds given [...] opinion. Would like referral to derm at [facility] Assessment & Plan (11/09/2020 6:23 PM EDT): Will treat with minocycline and referring to dermatology for more definitive management such as humira. Continue minocycline (previously prescribed, 100 mg daily and if worsens increase to 100 mg BID. 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 Followed by [facility]. No need for surgery at this time. P.T. recommended for stretching. At higher risk for hip arthritis as he ages Assessment & Plan (05/16/2023 1:16 PM EST): Was followed by [facility] but has not been seen in years. Mom reports that follow-up with them as as needed only Assessment & Plan (05/07/2022 10:48 AM EST): Followed at [facility] Assessment & Plan (08/24/2020 11:34 AM EDT): Complaining more of his hips & legs. 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 Possible T7/8 fusion. Butterfly vertebra T9. Followed at [facility]. Was referred to Neurosurg for ? Chairi 1 malformation based on MRI Head. Neurosurg felt he did not have Chiari 1 but did order MRI spine which also appeared normal - slt possibility of tethered cord ( anterior position of filum) Assessment & Plan (06/03/2024 12:40 PM EST): Followed by [facility] in the past No back pain today and nothing in the recent past Assessment & Plan (05/16/2023 1:14 PM EST): Has not been seen at [facility] in years. Follow-up is as needed only per mom Assessment & Plan (05/07/2022 10:51 AM EST): Followed at [facility] Assessment & Plan (08/24/2020 11:35 AM EDT): Mother to schedule follow up at [facility] Assessment & Plan (08/19/2019 1:36 PM EDT): Followed by [facility] Patient's mother does not know when last seen - she thinks he is due soon Assessment & Plan (06/09/2018 3:05 PM EST): Followed at [facility] Assessment & Plan (05/30/2017 2:27 PM EST): Followed by [facility] by ortho (last seen 11/2016) & urology (last seen 01/2017) Encounter for counseling for care management of patient with chronic conditions and complex health needs using nurse-based model 06/29/2014 Assessment & Plan (05/16/2023 1:16 PM EST): Met with medical rn home health, you Laws Assessment & Plan (08/24/2020 12:28 PM EDT): Met with [facility], Dariel Napier, today Medical rn home health will help the family set up follow-up with audiology, ophthalmology, [facility], neurology, endocrinology and possibly genetics. Chele needs follow-up with cardiology in 2022 Manual need follow-up with the dermatology clinic at [facility] in 1 month Assessment & Plan (06/23/2020 5:07 PM EST): MEDICAL WINTER INTERN, Dariel Napier, is working today on arranging follow up with cat sitter or Pedi ID Assessment & Plan (12/17/2019 10:09 AM EDT): Family met with MEDICAL WINTER INTERN, Dariel Napier , today Assessment & Plan (05/30/2017 2:30 PM EST): Met with [facility] today Hypotonia 04/28/2009 Overview (04/01/2017): Gets PT in school Assessment & Plan (08/24/2020 12:18 PM EDT): No more P.T. due to being remote only for school. Got P.T. in school Offered to refer to outpatient physical therapy but mom prefers to wait to see what the [facility] provider recommends at his follow-up appointment Assessment & Plan (05/30/2017 2:33 PM EST): Mom not sure if still getting P.T. In school. She thinks it was stopped Intellectual functioning disability 04/28/2009 Overview (03/08/2022): In [employer] classroom at [employer]. Full SPED 12/2021: Psychology eval. Meets criteria for Intellectual disability - severe. Mother should apply to become guardian. He should remain in school with IEP till 20 years of age Assessment & Plan (06/03/2024 12:28 PM EST): Involved with transitional program in [place] thru the school Mom started to do [...] (06/09/2018 2:55 PM EST): Full SPED at [facility] Assessment & Plan (05/30/2017 2:20 PM EST): Doing well in school. Full SPED support in place VSD (ventricular septal defect) 04/28/2009 Overview (07/07/2022): Sees Dr Reyez. Closure of his VSD 01/2005. Seen by [facility] 01/2018. All well. Follow up in 2022. 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 Stopped AFOs - no help & he was not wearing them as much as expected. Did not see patient - no leg pains at this time. Is supposed to see cat sitter yearly. Last note from Pedi ID was in 2018 - they transferred care to Dr Gupta, cat sitter/enrollment representative at [facility]. Has not been seen. MEDICAL WINTER INTERN will help mother to schedule Assessment & Plan (08/24/2020 12:26 PM EDT): Needs yearly follow up with cat sitter. Last seen by [facility] 04/2019. Was to see Dr Gupta ([facility]) last year but never happened due to [...] been done. We will asked the medical rn home health to help set up follow-up with endocrinology. 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 Has bilat hearing aides Assessment & Plan (06/03/2024 12:26 PM EST): Referral done to [facility] for hearing aides/HT - Chele isn't wearing his hearing aides in general he tells me Assessment & Plan (05/16/2023 1:12 PM EST): Has hearing aids. Does not wear them at school. Needs follow-up with audiology. Assessment & Plan (05/07/2022 10:50 AM EST): Needs follow up at [facility] - last seen 2018. Wears hearing aides at Home but not at school Assessment & Plan (08/24/2020 11:36 AM EDT): Lost one hearing aide - waiting for replacement Due for audiology follow up Assessment & Plan (08/19/2019 1:33 PM EDT): Has bilateral hearing aides but does not like to wear them Last audio eval 09/2018. Followed at [facility] yearly Has new hearing aides - still does not like Assessment & Plan (06/09/2018 2:37 PM EST): Due for Audiology FU in Jun Assessment & Plan (05/30/2017 2:19 PM EST): Followed at [facility]. Due for Follow up. Needs new batteries [...] Overview (02/04/2024): + fecal H.pylori antigen at [facility] during hospitalization Assessment & Plan (02/04/2024 5:21 PM EDT): Will treat with triple therapy - PPI, amoxil and macrolide for 14 days Will stop the minocin while on the above therapy Recheck stool antigen in 3 - 4 weeks for test of cure Abdominal pain 06/09/2018 06/09/2018 Overview (06/09/2018): endoscopy & colonoscopy by Dr Schmidt 02/2014 showed chronic gastritis. H. Pylori neg. Prilosec started Assessment & Plan (06/09/2018 3:08 PM EST): No current issues Counseling and coordination of care 11/26/2017 08/24/2020 Assessment & Plan (08/19/2019 11:57 AM EDT): Followed by MEDICAL WINTER INTERN at this office Assessment & Plan (06/09/2018 2:52 PM EST): Met with Makenzie Geronimo [facility], today Mom missed FU appt with Endo [...] urodynamic studies Done 12/2016 by urologist at [facility]. Storage phase of urodynamics was normal, there [...] on that & has not followed up [facility] urology may want to try ditropan Mom [...] completely clear. Also followed by Urology at [facility] - recently had urodynamic studies - also not clear Additional Health Concerns Active Problems Noted Date [...] DDS Mom does not have Guardianship 05/09/2022 Goals Goal Patient Goal Type Associated Problems Recent Progress Patient-Stated? Author Patient has specialist visit scheduled within recommended time frame General Louann Capellan MA Note: Mother will schedule a follow up appointment with Dr. Gupta. [facility] Immun[facility] [address] [id number] Mom will book follow up Patient has specialist visit scheduled within recommended time frame General No Louann Hatch MA Note: Mother will book an appointment with a new Dentist and Winter Intern. Genetics recommended [facility] [address] [place], [place] [phone] mom reminded again to book appointment. Patient has specialist visit scheduled within recommended time frame General No Louann Hatch MA Note: Mother will book an appointment with an Winter Intern. [facility] [address] [place] [address] [facility] [address] [address] Patient/caregiver will connect with recommended community resources [...] is still active. Mom will then call [facility] and make and appointment with our family welfare social work professor Meron. Once that is completed and that section of the paperwork is done and appointment is needed with Dr Matias. Mom and I discussed this in detail. This is a brief summary for her notes. This is in process. Mom still working on getting a pediatric critical care nurse for Chele and mom can not be the goggles assembler and the legal guardian. PCP entered new referral for [facility]. Mom will follow up on this Patient has specialist visit scheduled within recommended time frame General Louann Capellan MA Note: Schedule follow up appointment with Dr. Boogie Neu[facility] [phone] option 6 to reschedule. [address] Mom will book Neurology appointment Patient has specialist visit scheduled within recommended time frame General Louann Capellan MA Note: Schedule follow up appointment with Dr. Serna Genetics for next available, Due now. New referral sent by PCP 05/2024 Patient has specialist visit scheduled within recommended time frame General Louann Capellan MA Note: Schedule a follow up with Dr. Verdin Dermatology. Due now. [phone] Patient has specialist visit scheduled within recommended time frame General Louann aCpellan MA Note: Schedule a follow up with Speech and Hearing. Due now. [phone] Mom will keep appointment. He will need a hearing evaluation. He is not wearing hearing aids. Patient has specialist visit scheduled within recommended time frame General Louann Capellan MA Note: Schedule a follow up with Dr. Doe- Ophthalmology Due now. His office is booking into September 2024 so call now. [phone] Patient has specialist visit scheduled within recommended time frame General No Louann Hatch MA Note: Mom will schedule a follow up with Hematology for 07/2024. Will need repeat labs prior to the appointment. Dr. Bradford [facility] [place] [address] Patient/family is comfortable self-managing illnesses and chronic [...] so she can be his legal guardian. [facility] will track new referral sent 05/2024. Mom [...] November 2022. He needs a follow up. [facility] will track new referral sent 05/2024. Chele is not wearing his hearing aids. Interventions Care Plan Interventions Intervention Entry Date Outcome Tips for wearing hearing aids 06/19/2022 Note: Spoke with mom. Patient does not like wearing his hearing aids. He lost one also. Mom will work with Audiology to find a more comfortable pair. Reviewed some tips to help with the transition to wear them all the time for better hearing. Tips for getting used to hearing aids. 1. Wear them at home first Start by wearing your hearing aids at home or in other quiet listening environments. Reading aloud or talking to your pet can also help you get used to your own voice, too. Mom will try a reward system to help him want to keep them on. 2. Give yourself homework- at home 3. Take breaks Wear them a few hours the first day, then a few more hours every day after that. Gradually increase the number of hours you wear them per day. 4. Attend follow-up visits You? ll want to see your supervisor wool shearing for as many follow-up visits as you need to fine-tune the sounds you? re hearing, adjust the fit in your ear and talk about the situations that are most challenging for you. Most people visit their microfilm clerk about two weeks after their first fitting to get their devices fine-tuned and possibly adjust the volume. 5. Anticipate some frustration, especially with background noise Hearing aids flood your ears with sounds you didn't notice before, and it can be a bit of sound overload. For example, the humming of the refrigerator--a background noise that most people seldom notice--might seem very loud or unbearable. Again, wear for 15 minutes at a time to get used to them again. Mom will work with patient to insure a plan for better hearing. 6. Report any pain- Shawn complained of pain with his previous pair and did not report it. He stopped wearing them for a long while. Mom will speak with Rolling Down Machine Operator at the appointment to come up with a better plan for comfortable hearing aids. Shawn continues to wear hearing aids. Resources for a [facility] [employer] Salesperson 06/19/2022 Note:[facility] [address], [address], [place] [address] ?? ~87.3 mi Pj Douglas MD Address: [address], [place] [address] ?? ~75.7 mi Website: [employer] Specializations:Dermatology Patient still sees local Curtains And Draperies Salesperson for treatment. Scalp Care caused by continued Cellulitus of the scalp 06/19/2022 Note:Spoke with mom to review some scalp care: Use gentle hair care products Avoiding products that contain sulfates, alcohols, or fragrances may help improve your scalp health. ... Shampoo gently Rather than scrubbing your scalp when shampooing your hair, massage it. ... Wash less often Chele will continue with the plan outlined by the Curtains And Draperies Salesperson- Shawn continues with the plan outlined by Dr. Verdin. Patient needs an appointment with [facility] 06/19/2022 Note:Mom reminded to schedule a Dermatology appointment. [facility] will follow up with mom 05/09/2022 Note:2022 sb spoke with mom at the 09/13/2022 visit with sibling. Mom has not completed the DDS application and has not started on the CTR for guardianship given to her by Neuropsych. Spoke with mom and she will work on the application for DDS Mom will go back to Probate court 05/09/2022 Note:Mom will bring all documentation back to Probate court and they will advise next steps. Mom will request documentation of Zaynab Capabilities and limitations 05/09/2022 Note:Mom will make appointments with Specialists to have the Guardianship paperwork to be completed. If patient has DDS they can help mom with the process. Mom needs documentation of his capabilities and limitations. A registered physician, licensed psychologist and family welfare social work professor will all need to sign off on this. This must be done within a short time period of filing petition. DDS can provide referrals to help with this but these can have lengthy wait lists. 08/28/2023 sb Mom is still working on this. Since mom is his caregiver she can not be his guardian. Mom will go to Probate court 05/09/2022 Note:Mom will go to Probate court and request paperwork for Guardianship to be completed by providers. [facility] will follow up with mom 05/09/2022 Note: Mom will complete DDS application 05/09/2022 Note:Mom will complete application and bring it to the location noted on the application. DDS [address] [address] DDS can help with the Guardianship process. spoke with mom at the 09/13/2022 visit with sibling. Mom has not completed the DDS application and has not started on the CTR for guardianship given to her by Neuropsych. [facility] will follow up with mom 05/09/2022 Note:[facility] checked in with mom today about specialty appointments. [facility] sent primary care provider to see if she will see Chele for a 18 year old physical prior to transferring out. Mom does have the adult provider list and will start to make calls. Not many adults providers are accepting new patients. Appointment needed for [facility] 05/09/2022 Note:I spoke with mom and she will book an appointment with the Winter Intern and Dentist. I will add to the patient task section with the contact details. Appointment needed for Allergy and Immunology 05/09/2022 Note: [facility] gave mom the information again to book with Dr. Gupta. Appointment needed with Velvet Weaver 08/26/2020 Note:Follow up with Cardiology 2027 Appointment with Genetic needed 08/26/2020 Note:Patient due to Genetics 2024. [facility] will track new referral sent 05/2024 Appointment with Neurology needed 08/26/2020 Note:Chele referred to Neuropsychology by Dr. John. Chele seen by Rosemarie Dougherty [phone] . She can complete a section in the Guardianship paperwork. [facility] will track new referral. Mom did not complete guardianship referral/paperwork Was referred to adult Neuro. An appt has been booked for a in person appointment. See patient tasks for full details. Related Goals and Interventions Goal Associated Intervent ions Patient/family is comfortabl e self-managing illnesses and chronic conditions [facility] will follow up with mom; Appointment needed for [facility]; Appointment needed for Allergy and Immunology; Appointment needed with Velvet Weaver; Appointment with Genetic needed; Appointment with Neurology needed Shawn has DDS [facility] will follow up with mom; Mom will complete DDS application Mom has Guardianship [facility] will follow up with mom; Mom will go back to Probate court; Mom will request documentation of Zaynab Capabilities and limitations; Mom will go to Probate court Patient will reduce scalp in fections by following a plan and keeping specialty appointments Resources for a [facility] [employer] Salesperson; Scalp Care caused by continued Cellulitus of the scalp; Patient needs an appointment with [facility] Patient has specialist visit scheduled for Audiology for hearing loss and hearing aids Tips for wearing hearing aids
--- OUTSIDE RECORDS SUMMARY | 2024-07-01 15:19 | XMS_ITS ---
Author Organization [facility] Address [address] [place] [phone] Phone Care Team Providers Care Vice President Planning Name Role Phone Rhonda Frank MD Primary Care Provider Care Management Program Status:Enrolled (Active) Start date:05/13/2022 Enrollment date:05/13/2022 Related social drivers of health:Outside Support, Understanding Health Concerns Case Team Name Relationship Phone Louann Hatch MA Cinder Pit Worker/[facility](Responsib le Staff) [phone] Continued Care and Services Coordination
--- OUTSIDE RECORDS SUMMARY | 2024-07-01 15:19 | XMS_ITS | Encounter Summary ---
Author Organization [facility] Address [address] [place] [address] Phone Care Team Providers Care Pin Drafting Machine Operator Name Role Phone Rhonda Frank MD Primary Care Provider [phone] Reason for Referral * Consult and return to PCP (Routine) - Authorized Specialty Diagnoses / Procedures Referred By Jaosn odonnell Referred To Contact Audiology Diagnoses Other specified hearing loss of both ears Rhonda Frank MD [address] [place] [address] Phone: tel: fax: [facility] - Speech and Hearing Services [address] [place] [address] Phone: tel: fax: Referral ID Status Reason Start Date Expiration Date Visits Requested Visits Authorized [id number] Authorized Specialty Services Required 06/03/2024 11/30/2024 1 1 Scheduling Instructions Purpose of Visit: hearing loss Primary question(s) for the specialist: To date, the workup has been: For the initial assessment my preference would be: [facility] - has been seen there in the past * Consult and return to PCP (Routine) - Authorized Specialty Diagnoses / Procedures Referred By Jason odonnell Referred To Contact Genetics Diagnoses Kabuki syndrome Rhonda Frank MD [address] [place] [address] Phone: tel: fax: [facility] - [address] [address] Phone: tel: fax: Referral ID Status Reason Start Date Expiration Date Visits Requested Visits Authorized [id number] Authorized Specialty Services Required 06/03/2024 11/30/2024 1 1 Scheduling Instructions Purpose of Visit: 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 Primary question(s) for the specialist: To date, the workup has been: For the initial assessment my preference would be: Dr Snider at [facility] Reason for Visit * Reason Comments Well Visit 18 yr old Encounter Details Date Type Department Care Team (Late st Contact Info) Description 06/03/2024 10:00 AM EST Office Visit [facility] [place] [address] [place] [address] Rhonda Frank MD [address] [place], [place] [id number] Well adult exam (Primary Dx); BMI 31.0-31.9,adult; Encounter for screening examination for sexually transmitted disease; Dietary counseling and surveillance; Exercise counseling; Kabuki syndrome; Other specified hearing loss of both ears; Intellectual functioning disability; Nonintractable epilepsy without status epilepticus, unspecified epilepsy type; Idiopathic thrombocytopenic purpura; VSD (ventricular septal defect); Need for vaccination; Dissecting cellulitis of scalp; Class 1 obesity; Congenital vertebral anomaly Social History Tobacco Use Types Packs/Day Years [...] on file documented as of this encounter Last Filed Vital Signs Vital Sign Reading Time Taken Comments Blood Pressure 123/78 06/03/2024 10:12 AM EST Pulse - - Temperature - - Respiratory Rate - - Oxygen Saturation - - Inhaled Oxygen Concentration - - Weight 71.3 kg (157 lb 3.2 oz) 06/03/2024 10:12 AM EST Height 151.1 cm (4' 11.5 ) 06/03/2024 10:[address] Body Mass Index 31.22 06/03/2024 10:12 AM EST documented in this encounter Patient Instructions * Patient Instructions* Rhonda Frank MD - 06/03/2024 10:00 AM EST Images from the original note were not included. Well Visit, Ages 18 to 65: Care Instructions Well visits can help you stay healthy. Your doctor has checked your overall health and may have suggested ways to take good care of yourself. Your doctor also may have recommended tests. You can helpprevent illness with healthy eating, good sleep, vaccinations, regular exercise, and other steps. Get the tests that you and your doctor decide on. Depending on your age and risks, examples might include screening for diabetes; hepatitis C; HIV; and cervical, breast, lung, and colon cancer. Screening helps find diseases before any symptoms appear. Eat healthy foods. Choose fruits, vegetables, whole grains, lean protein, and low-fat dairy foods. Limit saturated fat and reduce salt. Limit alcohol. Men should have no more than 2 drinks a day. Women should have no more than 1. For some people, no alcohol is the best choice. Exercise. Get at least 30 minutes of exercise on most days of the week. Walking can be a good choice. Reach and stay at your healthy weight. This will lower your risk for many health problems. Take care of your mental health. Try to stay connected with friends, family, and community, and find ways to manage stress. If you're feeling depressed or hopeless, talk to someone. A counselor can help. If you don't have acounselor, talk to your doctor. Talk to your doctor if you think you may have a problem with alcohol or drug use. This includes prescription medicines, marijuana, and other drugs. Avoid tobacco and nicotine: Don't smoke, vape, or chew. If you need help quitting, talk to your doctor. Practice safer sex. Getting tested, using condoms or dental dams, and limiting sex partners can help prevent STIs. Use control if it's important to you to prevent . Talk with your doctor about your choices and what might be best for you. Prevent problems where you can. Protect your skin from too much sun, wash your hands, brush your teeth twice a day, and wear a seat belt in the car. Where can you learn more? Scan the VideoPros code or Go to https://www.[facility].net/patientEd Enter P072 in the search box to learn more about Well Visit, Ages 18 to 65: Care Instructions. Current as of: September 10, 2023 Content Version: 14.3 ?? 2023 [employer]. Care instructions adapted under license by your healthcare professional. If you have questions about a medical condition or this instruction, always ask your healthcare professional. [employer], disclaims any warranty or liability for your use of this information. Learning About Dental Care Basic dental care includes brushing and flossing your teeth. It also includes going to your dentistfor checkups and cleanings. This care can help your teeth last a long time. Brushing and flossing remove plaque. Plaque is bacteria that can cause gum disease and cavities (holes in your teeth from tooth decay). Brushing and flossing also remove bacteria that cause bad breath. And they help prevent stains on your teeth. What can you do to prevent dental problems? Melber your teeth twice a day, and floss at least once a day. Replace your toothbrush every 3 to 4 months. Choose a toothbrush with soft bristles. Use a fluoride toothpaste. Follow your dentist's directions on how to brush your teeth. Go to all your regular dental checkups and cleanings. Choose healthy foods that are good for your teeth and gums, such as whole grains, vegetables, and fruits. Avoid foods and drinks that contain a lot of sugar, and try not to snack before bedtime. Avoid using tobacco products, and talk to your doctor if you need help quitting. Where can you learn more? Scan the QR code or Go to https://www.[facility].net/patientEd Enter C432 in the search box to learn more about Learning About Dental Care. Current as of: December 11, 2023 Content Version: 14.3 ?? 2023 [employer]. Care instructions adapted under license by your healthcare professional. If you have questions about a medical condition or this instruction, always ask your healthcare professional. [employer], disclaims any warranty or liability for your use of this information. documented in this encounter Progress Notes * Rhonda Frank MD - 06/03/2024 10:00 AM EST Chief Complaint Well Visit (18 yr old) History of Present Illness Chele is a 18yr male who presents to the office with his mother, whose name is Zuleika Alberto. Diet, Elimination, Education, Activities, Home Environment 06/03/2024 Today's visit was In-Person at [facility] Concerns today: None Involved with transitional program - van picks up and returns on a school-day schedule - program runs out of [facility] [employer] and moves to other sites like [employer], [employer], dance studio and [employer] Has special female friend at the program Mom wants him to work more on advocating for himself - there was an incident at the program that made her realize that he accepts what is told to him and never asks questions or sticks up for himself Generally eating ok - sleeps ok - tends to be very low energy in general and with age getting even more that way No regular physical activity outside of what he gets at the program (like the dance per mom) Interval History since last [facility]: There has been no change in health status since the last Well Visit Has Chele had a history of Covid 19 infection during the past year: No Any changes at home since last Well visit? no. Lives with mom,brother, sister, and bird Mom: Teacher Any Vision/Hearing concerns: No Any Developmental concerns: No DIET: fruits, vegetables, picky eater, cow's milk Some vegetables, not many ELIMINATION: No concerns. regular soft stools, normal urine output SLEEP: No concerns. sleeps well SCREENTIME: < 2 hours per day, [employer], video games DENTAL CARE: patient has a dental home, brushing 2+ times per day EDUCATION: Transitional program [employer] classroom. HOME SAFETY: No second hand smoke exposure. No lead risk factors. No firearms in the house. No poolat the home. CO detectors in the home. Smoke detectors in the home. Fire extinguisher in the home. Properly restrained in the car. Development PHQ-4 SCORE: 0 3-4 mild, 6-8 moderate, 9-12 severe. . Review of Systems Medications Marked as Taking Medication Sig levETIRAcetam 750 MG tablet Take 750 mg by mouth. minocycline 50 MG capsule Allergies No Known Allergies Vital Signs BP 123/78 Ht 4' 11.5 (151.1 cm) Wt 157 lb 3.2 oz (71.3 kg) BMI 31.22 kg/m?? (sees his opthalmologist) (06/03/24) Corrective lenses: Wears corrective lenses Physical Exam Physical Exam Constitutional: Appearance: He is well-developed. Comments: Tends to look away from me HENT: Right Ear: Tympanic membrane normal. Left Ear: Tympanic membrane normal. Mouth/Throat: Mouth: Mucous membranes are moist. Pharynx: Oropharynx is clear. Eyes: General: Right eye: No discharge. Left eye: No discharge. Conjunctiva/sclera: Conjunctivae normal. Comments: Dysconjugate gaze with OD moving more normally than OS Minimial ptosis OS noted today Neck: Thyroid: No thyromegaly. Cardiovascular: Rate and Rhythm: Normal rate and regular rhythm. Pulses: Normal pulses. Heart sounds: No murmur heard. No friction rub. No gallop. Pulmonary: Effort: Pulmonary effort is normal. No respiratory distress. Breath sounds: Normal breath sounds. Abdominal: General: There is no distension. Palpations: Abdomen is soft. There is no hepatomegaly, splenomegaly or mass. Tenderness: There is no abdominal tenderness. Hernia: No hernia is present. Genitourinary: Penis: Normal. Testes: Normal. Comments: T4 uncirc male Musculoskeletal: General: No deformity. Normal range of motion. Cervical back: Normal range of motion and neck supple. Comments: + tight bilateral heel cords Skin: General: Skin is warm and dry. Findings: No rash. Comments: Dry with tiny bumpiness over trunk Several surgical scars on abdomen Small pink horizontal scar R flank with an overlay of purplish discoloration over it Neurological: Mental Status: He is alert. Mental status is at baseline. Cranial Nerves: No cranial nerve deficit. Motor: No weakness. Psychiatric: Mood and Affect: Affect normal. Labs No results found for any visits on 06/03/24. Assessment and Plan 1. Well adult exam EPSDT - Additional services for state funded insurances, Brief Behavioral Assessment - Normal (PSC,PHQ9,Pilgrim,etc) 2. BMI 31.0-31.9,adult 3. Encounter for screening examination for sexually transmitted disease 4. Dietary counseling and surveillance 5. 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 Other specified hearing loss of both ears Ambulatory referral to Audiology 8. Intellectual functioning disability 9. Nonintractable epilepsy without status epilepticus, unspecified epilepsy type 10. Idiopathic thrombocytopenic purpura 11. VSD (ventricular septal defect) 12. Need for vaccination IIV3 Influenza, split virus, trivalent, PF, IM 13. Dissecting cellulitis of scalp 14. 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 Children with kabuki syndrome can have issues with intubation due to abnormal airways. There also can be some issues related to cardiac problems, immune dysfunction, and hypotonia. Also plan on follow up 1 - 2 years in 2022 so will do referral for 2024 evaluation for Chele Hearing loss of both ears Referral done to [facility] for hearing aides/HT - Chele isn't wearing his hearing aides in general he tells me Intellectual functioning disability Involved with transitional program in [place] thru the school Mom started to do paperwork for guardianship but has not completed it - I urged her to do so and offered any assistance if needs medical information Epilepsy Follow up with neurology VSD (ventricular septal defect) On an every 5 year follow up plan per mom - next due 2027 Dissecting cellulitis of scalp Much better - follows with dermatology - mom feels that a lot of meds given to Chele when hospitalized for the ITP helped with his scalp Idiopathic thrombocytopenic purpura Has done well over the past 6 months with no recurrence Follow up with Dr Baez in July per mom Congenital vertebral anomaly Followed by Denis[facility] in the past No back pain today and nothing in the recent past Follow-up and Dispositions Return for office visits if needed until age 19. Next year's well visit must be scheduled with adult provider.. 18-19 year [facility] additional A&P notes: - Safety was discussed and/or information was given - Bright Futures Anticipatory Guidance Handout was given - Cell phone/internet safety was discussed - Healthy active lifestyle was reviewed - Transitioning to Adult Medical Provider was discussed - Depression screen (PHQ-4 or PHQ-9) was reviewed. - Immunizations were discussed & information was given - An independent historian was used today due to the patient's age or intellectual disability. * Louann Hatch MA - 06/03/2024 10:00 AM EST It is unfortunate she did not complete the forms. She had the CTR and only needed two more sectionsof the form to be completed by PCP and SW and then head to court. Now they have to start all over with another evaluation. documented in this encounter Miscellaneous Notes * Assessment & Plan Note - Rhonda Frank MD - 06/03/2024 12:40 PM EST Associated Problem(s): Congenital vertebral anomaly Followed by [facility] in the past No back pain today and nothing in the recent past * Assessment & Plan Note - Rhonda Frank MD - 06/03/2024 12:32 PM EST Associated Problem(s): Idiopathic thrombocytopenic purpura Has done well over the past 6 months with no recurrence Follow up with Dr Baez in July per mom * Assessment & Plan Note - Rhonda Frank MD - 06/03/2024 12:32 PM EST Associated Problem(s): Dissecting cellulitis of scalp Much better - follows with dermatology - mom feels that a lot of meds given to Chele when hospitalized for the ITP helped with his scalp * Assessment & Plan Note - Rhonda Frank MD - 06/03/2024 12:30 PM EST Associated Problem(s): VSD (ventricular septal defect) On an every 5 year follow up plan per mom - next due 2027 * Assessment & Plan Note - Rhonda Frank MD - 06/03/2024 12:29 PM EST Associated Problem(s): Epilepsy Follow up with neurology * Assessment & Plan Note - Rhonda Frank MD - 06/03/2024 12:28 PM EST Associated Problem(s): Intellectual functioning disability Involved with transitional program in [place] thru the school Mom started to do paperwork for guardianship but has not completed it - I urged her to do so and offered any assistance if needs medical information * Assessment & Plan Note - Rhonda Frank MD - 06/03/2024 12:26 PM EST Associated Problem(s): Hearing loss of both ears Referral done to [facility] for hearing aides/HT - Chele isn't wearing his hearing aides in general he tells me * Assessment & Plan Note - Rhonda Frank MD - 06/03/2024 12:25 PM EST Associated Problem(s): Kabuki syndrome Per Genetics consult 2022: If needing anything beyond local anesthesia should be cleared by anesthesiologist. Children with kabuki syndrome can have issues with intubation due to abnormal airways. There also can be some issues related to cardiac problems, immune dysfunction, and hypotonia. Also plan on follow up 1 - 2 years in 2022 so will do referral for 2024 evaluation for Chele documented in this encounter Plan of Treatment Scheduled Referrals Name Type Priority Associated Diagnoses Order Schedule Ambulatory referral to Genetics Outpatient Referral Routine Kabuki syndrome Ordered: 06/03/2024 Ambulatory referral to Audiology Outpatient Referral Routine Other specified hearing loss of both ears Ordered: 06/03/2024 documented as of this encounter Goals Goal Patient Goal Type Associated Problems Recent Progress Patient-Stated? Author Patient has specialist visit scheduled within recommended time frame General Louann Capellan MA Note: Mother will schedule a follow up appointment with Dr. Gupta. [facility] [address] [place] [address] Mom will book follow up Patient has specialist visit scheduled within recommended time frame General Louann Capellan MA Note: Mother will book an appointment with a new Dentist and Supervising Editor Trailer. Genetics recommended [facility] [address] [facility] TONEY Mckee [phone] mom reminded again to book appointment. Patient has specialist visit scheduled within recommended time frame General Louann Capellan MA Note: Mother will book an appointment with an Supervising Editor Trailer. [facility] [address] [place] [address] [facility] [address] [address] Patient/caregiver will connect with recommended community resources General Louann Capellan MA Note: Leti has the DDS application. She will complete [...] is still active. Mom will then call [facility] and make and appointment with our social service coordinator Meron. Once that is completed and that section of the paperwork is done and appointment is needed with Dr Matias. Mom and I discussed this in detail. This is a brief summary for her notes. This is in process. Mom still working on getting a aged or disabled carer for Chele and mom can not be the house cleaner supervisor and the legal guardian. PCP entered new referral for Farhat. Mom will follow up on this Patient has specialist visit scheduled within recommended time frame General Louann Capellan MA Note: Schedule follow up appointment with Dr. Boogie Neurology [phone] option 6 to reschedule. [address] Mom will book Neurology appointment Patient has specialist visit scheduled within recommended time frame General Louann Capellan MA Note: Schedule follow up appointment with Dr. Serna Genetics for next available, Due now. New referral sent by PCP 05/2024 Patient has specialist visit scheduled within recommended time frame General Louann Capellan MA Note: Schedule a follow up with Dr. Verdin Dermatology. Due now. [phone] Patient has specialist visit scheduled within recommended time frame General Louann Capellan MA Note: Schedule a follow up with Speech and Hearing. Due now. [phone] Mom will keep appointment. He will need a hearing evaluation. He is not wearing hearing aids. Patient has specialist visit scheduled within recommended time frame General Louann Capellan MA Note: Schedule a follow up with Dr. Doe- Ophthalmology Due now. His office is booking into September 2024 so call now. [phone] Patient has specialist visit scheduled within recommended time frame General Louann Capellan MA Note: Mom will schedule a follow up with Hematology for 07/2024. Will need repeat labs prior to the appointment. Dr. Bradford [address] [place] [address] Patient/family is comfortable self-managing illnesses and chronic [...] so she can be his legal guardian. [facility] [place] [place] will track new referral sent 05/2024. Mom [...] November 2022. He needs a follow up. [facility] [place] [place] will track new referral sent 05/2024. Chele is not wearing his hearing aids. documented as of this encounter Procedures * Due to [place] state law, this organization might not be sharing sensitive test results. Procedure Name Priority Date/Time Associated Diagnosis Comments BRIEF BEHAVIORAL ASSESSMENT - NORMAL(PSC,PHQ9,VANDERBI LT,ETC) Routine 06/03/2024 10:26 AM EST Well adult exam EPSDT - ADDITIONAL SERVICES FOR STATE FUNDED INSURANCE Routine 06/03/2024 10:26 AM EST Well adult exam documented in this encounter Visit Diagnoses Diagnosis Well adult exam- Primary Routine general medical examination at a health care facility BMI 31.0-31.9,adult Encounter for screening examination for sexually transmitted disease Dietary counseling and surveillance Exercise counseling Kabuki syndrome Other specified congenital anomalies, so described Other specified hearing loss of both ears Intellectual functioning disability Unspecified mental retardation Nonintractable epilepsy without status epilepticus, unspecified epilepsy type Idiopathic thrombocytopenic purpura Immune thrombocytopenic purpura VSD (ventricular septal defect) Ventricular septal defect Need for vaccination Need for prophylactic vaccination and inoculation against unspecified single disease Dissecting cellulitis of scalp Other specified disease of hair and hair follicles Class 1 obesity Congenital vertebral anomaly documented in this encounter Additional Health Concerns Active [...] documented as of this encounter Care Teams Pin Drafting Machine Operator Relationship Specialty Start Date End Date Rhonda Frank MD [address] [place] [id number] PCP - General Pediatrics 08/28/23 Avtar Alcantara MD Consulting Physician Urology 03/12/18 documented as of this encounter
--- OUTSIDE RECORDS SUMMARY | 2024-07-01 15:19 | XMS_ITS | Encounter Summary ---
Author Organization [facility] Address [address] [place] [address] Phone Care Team Providers Care Machine Grinder Name Role Phone Rhonda Frank MD Primary Care Provider Encounter Details Date Type Department Care Team (Late st Contact Info) Description 12/05/2016 Documentation [facility] Family Medicine [address] [place] [address] Family Medicine, Physician [address], [place] [id number] Social History Tobacco Use Types Packs/Day Years [...] on filedocumented in this encounter Care Teams Machine Grinder Relationship Specialty Start Date End Date Rhonda Frank MD [address] [place] [address] PCP - General Pediatrics 08/28/23 Avtar Alcantara MD Consulting Physician Urology 03/12/18 documented as of this encounter
--- OUTSIDE RECORDS SUMMARY | 2024-07-01 15:19 | XMS_ITS | Encounter Summary ---
Author Organization [facility] Address [address] [place] [address] Phone Care Team Providers Care Licensed Mental Health Counselor Name Role Phone Rhonda Frank MD Primary Care Provider [phone] Encounter Details Date Type Department Care Team (Late st Contact Info) Description 09/17/2013 Documentation [facility] [place] [address] [place] [address] Family Medicine, Physician [address] [place] [phone] Social History Tobacco Use Types Packs/Day Years [...] on filedocumented in this encounter Care Teams Licensed Mental Health Counselor Relationship Specialty Start Date End Date Rhonda Frank MD [address] [place] [address] PCP - General Pediatrics 08/28/23 Avtar Alcantara MD Consulting Physician Urology 03/12/18 documented as of this encounter
--- OUTSIDE RECORDS SUMMARY | 2024-07-01 15:19 | XMS_ITS | Encounter Summary ---
Author Organization [facility] Address [address] [place] [address] Phone Care Team Providers Care Manager Recruitment Name Role Phone Rhonda Frank MD Primary Care Provider Encounter Details Date Type Department Care Team (Late st Contact Info) Description 08/08/2016 Documentation [facility] [place] [address] [place] [address] Family Medicine, Physician [address] [place], [place] [phone] Social History Tobacco Use Types Packs/Day Years [...] on filedocumented in this encounter Care Teams Manager Recruitment Relationship Specialty Start Date End Date Rhonda Frank MD [address] [place] [address] PCP - General Pediatrics 08/28/23 Avtar Alcantara MD Consulting Physician Urology 03/12/18 documented as of this encounter
--- OUTSIDE RECORDS SUMMARY | 2024-07-01 15:19 | XMS_ITS | Encounter Summary ---
Author Organization [facility] Address [address] [place] [address] Phone Care Team Providers Care Mcat Instructor Name Role Phone Rhonda Frank MD Primary Care Provider Encounter Details Date Type Department Care Team (Late st Contact Info) Description 03/31/2010 Documentation [facility] [place] [address] [place], [place] [phone] Family Medicine, Physician [address] [place], [place] [phone] Social History Tobacco Use Types Packs/Day Years [...] on filedocumented in this encounter Care Teams Mcat Instructor Relationship Specialty Start Date End Date Rhonda Frank MD [address] [place] [address] PCP - General Pediatrics 08/28/23 Avtar Alcantara MD Consulting Physician Urology 03/12/18 documented as of this encounter
--- OUTSIDE RECORDS SUMMARY | 2024-07-01 15:19 | XMS_ITS | Encounter Summary ---
Author Organization [facility] Address [address] [place] [address] Phone Care Team Providers Care Railroad Police Name Role Phone Rhonda Frank MD Primary Care Provider Encounter Details Date Type Department Care Team (Late st Contact Info) Description 06/06/2016 Documentation [facility] [place] [address] [place] [address] Family Medicine, Physician [address] [place], [place] [address] Social History Tobacco Use Types Packs/Day Years [...] on filedocumented in this encounter Care Teams Railroad Police Relationship Specialty Start Date End Date Rhonda Frank MD [address] [place] [address] PCP - General Pediatrics 08/28/23 Avtar Alcantara MD Consulting Physician Urology 03/12/18 documented as of this encounter
--- OUTSIDE RECORDS SUMMARY | 2024-07-01 15:19 | XMS_ITS | Encounter Summary ---
Author Organization [facility] Address [address] [place] [address] Phone Care Team Providers Care Computer Salesperson Retail Name Role Phone Rhonda Frank MD Primary Care Provider Encounter Details Date Type Department Care Team (Late st Contact Info) Description 04/03/2011 Documentation [facility] [place] [address] [place], [place] [phone] Family Medicine, Physician [address] [place], [place] [phone] Social History Tobacco Use Types Packs/Day Years [...] on filedocumented in this encounter Care Teams Computer Salesperson Retail Relationship Specialty Start Date End Date Rhonda Frank MD [address] [place] [address] PCP - General Pediatrics 08/28/23 Avtar Alcantara MD Consulting Physician Urology 03/12/18 documented as of this encounter
--- OUTSIDE RECORDS SUMMARY | 2024-07-01 15:19 | XMS_ITS | Encounter Summary ---
Author Organization [facility] Address [address] [place] [address] Phone Care Team Providers Care Microsoft Crm Developer Name Role Phone Rhonda Frank MD Primary Care Provider [phone] Encounter Details Date Type Department Care Team (Late st Contact Info) Description 01/06/2014 Documentation [facility] [place] [address] [place] [address] Family Medicine, Physician [address] [place], [place] [address] Social History Tobacco Use Types Packs/Day Years [...] on filedocumented in this encounter Care Teams Microsoft Crm Developer Relationship Specialty Start Date End Date Rhonda Frank MD [address] [place] [address] PCP - General Pediatrics 08/28/23 Avtar Alcantara MD Consulting Physician Urology 03/12/18 documented as of this encounter
--- OUTSIDE RECORDS SUMMARY | 2024-07-01 15:19 | XMS_ITS | Encounter Summary ---
Author Organization [facility] Address [address] [place] [address] Phone Care Team Providers Care Wood Tile Installer Name Role Phone Rhonda Frank MD Primary Care Provider Reason for Visit * Reason Onset Date Comments reminer call for dev testing 06/22/2024 Encounter Details Date Type Department Care Team ([facility] Contact Info) Description 06/22/2024 Telephone [facility] [place] [address] [place] [address] Louann Hatch MS [address] [place] [address] reminer call for dev testing Social History Tobacco Use Types Packs/Day Years [...] on file documented as of this encounter Miscellaneous Notes * Telephone Encounter - Ela Marion - 06/26/2024 9:23 AM EST Message viewed but will leave for Louann to see upon her return. * Telephone Encounter - Maxine Wang - 06/26/2024 8:55 AM EST I received a call from Kusum at [facility]. Mom accidentally forgot about 06/23/24 appt. Neuropsych is working with mom to get the appt rescheduled to a all in one appt. Rather than multipleappts. to get it all done on 06/29/24 9am. Then feed back visit will be scheduled after with mom. Thanks Mariya Jarquin * Telephone Encounter - Rhonda Frank MD - 06/22/2024 12:30 PM EST noted * Telephone Encounter - Louann Hatch MA - 06/22/2024 10:23 AM EST Consult is 06/23/24 at 11 am and testing is at 06/29/24 at 9am. Mom is aware via text confirmation. Left detailed VM on identified VM about the appt. Call pa or [facility] with any concerns. * Telephone Encounter - Louann Hatch MA - 06/22/2024 10:23 AM EST ----- Message from Louann Hatch sent at 06/04/2024 9:59 AM EST ----- Follow guardian ship documented in this encounter Plan of Treatment Not on file documented as of this encounter Goals Goal Patient Goal Type Associated Problems Recent Progress Patient-Stated? Author Patient has specialist visit scheduled within recommended time frame General Louann Capellan MA Note: Mother will schedule a follow up appointment with Dr. Gupta. [facility] [address] [address] Mom will book follow up Patient has specialist visit scheduled within recommended time frame Louann Shaver MA Note: Mother will book an appointment with a new Dentist and Exploration Geologist. Genetics recommended [facility] [address] [facility] TONEY Mckee [phone] mom reminded again to book appointment. Patient has specialist visit scheduled within recommended time frame General Louann Capellan MA Note: Mother will book an appointment with an Exploration Geologist. [facility] [address] [place] [address] [place] [address] [facility] [address] [address] Patient/caregiver will connect with recommended community resources [...] is still active. Mom will then call [facility] and make and appointment with our social media community manager Meron. Once that is completed and that section of the paperwork is done and appointment is needed with Dr Matias. Mom and I discussed this in detail. This is a brief summary for her notes. This is in process. Mom still working on getting a career representative for Chele and mom can not be the inspector outside steam distribution and the legal guardian. PCP entered new referral for Farhat. Mom will follow up on this Patient has specialist visit scheduled within recommended time frame General No Louann Hatch MA Note: Schedule follow up appointment with Dr. Boogie Neurology [phone] option 6 to reschedule. [address] Mom will book Neurology appointment Patient has specialist visit scheduled within recommended time frame General No Louann Hatch MA Note: Schedule follow up appointment with Dr. Daphne Alexis for next available, Due now. New referral sent by PCP 05/2024 Patient has specialist visit scheduled within recommended time frame General Louann Capellan MA Note: Schedule a follow up with Dr. Verdin Dermatology. Due now. [phone] Patient has specialist visit scheduled within recommended time frame General No Louann Hatch MA Note: Schedule a follow up with Speech and Hearing. Due now. [phone] Mom will keep appointment. He will need a hearing evaluation. He is not wearing hearing aids. Patient has specialist visit scheduled within recommended time frame General No Louann Hatch MA Note: Schedule a follow up with Dr. Doe- Ophthalmology Due now. His office is booking into September 2024 so call now. [phone] Patient has specialist visit scheduled within recommended time frame General No Louann Hatch MA Note: Mom will schedule a follow up with Hematology for 07/2024. Will need repeat labs prior to the appointment. Dr. Bradford [address] [place] [address] Patient/family is comfortable self-managing illnesses and chronic [...] so she can be his legal guardian. [facility] [place] new [place] sent 05/2024. 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 He needs a follow up. [facility] [place] new referral sent 05/2024. Chele [...] documented as of this encounter Care Teams Wood Tile Installer Relationship Specialty Start Date End Date Rhonda Frank MD [address] [place] [address] PCP - General Pediatrics 08/28/23 Avtar Alcantara MD Consulting Physician Urology 03/12/18 documented as of this encounter
--- OUTSIDE RECORDS SUMMARY | 2024-07-01 15:19 | XMS_ITS | Clinical Summary ---
Author Organization [facility] Address [address] [place] [address] Care Team Providers Care Computer Tape Librarian Name Role Phone Denia Matias MD Primary Care Provider [phone] Source Comments Please note that some or all of the patient's information could have additional privacy protections. State laws allow health care providers to render certain types of treatment to minors without parental consent. Please do not assume that this information can be shared solely by obtaining just the consent of the patient's parent/guardian. Please determine if all or part of the patient's care was rendered without parent/guardian involvement. And, if so, obtain the minor's consent prior to disclosure.[facility] Allergies No known active allergies Medications minocycline (MINOCIN) 100 MG capsule TAKE 1 CAPSULE BY MOUTH TWICE A DAY WITH FOOD AND WATER 06/21/2022 Active Active Problems Problem Noted Date Diagnosed Date VSD (ventricular septal defect) 07/02/2022 Family History Medical History Relation Name Comments Diabetes Maternal Grandfather Hypertension Maternal Grandfather Migraines Maternal Grandmother Migraines Paternal Grandmother Relation Name Status Comments Maternal Grandfather Maternal Grandmother Paternal Grandmother Social History Tobacco Use Types Packs/Day Years Used Date Smoking Tobacco: Never Tobacco Cessation:Counseling Given: Not Answered Other Needs Answer Date Recorded Anything else about your child you'd like help w ith? Not on file 01/25/2023 Share good news about positive changes: Not on f ile 01/25/2023 Sex and Gender Information Value Date Recorded Sex Assigned at Not on file Legal Sex Male 8:37 AM EST Gender Identity Not on file Sexual Orientation Not on file Last Filed Vital Signs Vital Sign Reading Time Taken Comments Blood Pressure 114/68 07/02/2022 1:09 PM EST Pulse 88 07/02/2022 1:09 PM EST Temperature - - Respiratory Rate - - Oxygen Saturation 99% 07/02/2022 1:09 PM EST Inhaled Oxygen Concentration - - Weight 64 kg (141 lb 1.5 oz) 07/02/2022 1:09 PM EST Height 151 cm (4' 11.45 ) 07/02/2022 1:09 PM EST Body Mass Index 28.07 07/02/2022 1:09 PM EST Plan of Treatment Health Maintenance Due Date Last Done Comments DTaP/TDAP/TD VACCINES (1 - Tdap) 11/01/2010 ADOLESCENT HIV SCREENING 11/01/2016 COVID-19 Vaccine (2 - 2023-2 5 season) 2024 05/07/2022 INFLUENZA (#1) 2024 NIRSEVIMAB VACCINES UNDER 8 MONTHS Aged Out No longer eligible b ased on patient's age to complete this topic Insurance HMO Care Teams Computer Tape Librarian Relationship Specialty Start Date End Date Denia Matias MD [address] [place] [address] [address] [place] [address] PCP - General General Pediatrics 05/18/22
--- OUTSIDE RECORDS SUMMARY | 2024-07-01 15:19 | XMS_ITS | Encounter Summary ---
Author Organization [facility] Address [address] [place] [address] Phone Care Team Providers Care Pharmacy Resource Tech Name Role Phone Rhonda Frank MD Primary Care Provider Encounter Details Date Type Department Care Team (Late st Contact Info) Description 04/10/2011 Documentation [facility] [place] [address] [place] [address] Family Medicine, Physician [address] [place], [place] [phone] Social History Tobacco Use Types Packs/Day Years [...] on filedocumented in this encounter Care Teams Pharmacy Resource Tech Relationship Specialty Start Date End Date Rhonda Frank MD [address] [place] [address] PCP - General Pediatrics 08/28/23 Avtar Alcantara MD Consulting Physician Urology 03/12/18 documented as of this encounter
--- OUTSIDE RECORDS SUMMARY | 2024-07-01 15:19 | XMS_ITS | Encounter Summary ---
Author Organization [facility] Address [address] [place] [address] Phone Care Team Providers Care Titrator Name Role Phone Rhonda Frank MD Primary Care Provider Encounter Details Date Type Department Care Team (Late st Contact Info) Description 01/05/2014 Documentation [facility] [place] [address] [place] [address] Family Medicine, Physician [address] [place], [place] [phone] Social History Tobacco Use Types Packs/Day Years [...] on filedocumented in this encounter Care Teams Titrator Relationship Specialty Start Date End Date Rhonda Frank MD [address] [place] [address] PCP - General Pediatrics 08/28/23 Avtar Alcantara MD Consulting Physician Urology 03/12/18 documented as of this encounter
--- OUTSIDE RECORDS SUMMARY | 2024-07-01 15:19 | XMS_ITS | Encounter Summary ---
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 Rhonda Frank MD [address] [place] [address] Phone: tel: fax: [facility] [address] [facility] [address] [place] [address] Phone: tel: fax: Referral ID Status Reason Start Date Expiration Date V isits Requested Visits Authorized [id number] Closed Specialty Services Required 06/05/2024 12/02/2024 1 1 Scheduling Instructions Purpose of Visit: evaluate for guardianship Primary question(s) for the specialist: seen for above in 2021 To date, the workup has been: For the initial assessment my preference would be: Dr Dougherty at [facility] please Reason for Visit * Reason Onset Date Comments neuropsych referral 06/03/2024 Encounter Details Date Type Department Care Team ([facility] st Contact Info) Description 06/03/2024 Telephone [facility] [place] [address] [place] [address] Maxine Wang [address] [place] [address] neuropsych referral Social History Tobacco Use Types Packs/Day Years [...] encounter Miscellaneous Notes * Telephone Encounter - Louann Hatch MA - 06/16/2024 8:16 AM EST Yay. Thanks ladies . Team work at it's best. * Telephone Encounter - Maxine Wang - 06/15/2024 10:36 AM EST Received a VM back from Kusum at [facility]usops[facility]. Consult is 06/23/24 at 11 am and testing is at 06/29/24 at 9am. Mom is aware via text confirmation. Thanks Mariya Jarquin * Telephone Encounter - Maxine Wang - 06/05/2024 12:02 PM EST Emailed request to Kusum at [facility]. Thanks Mariya Jarquin * Telephone Encounter - Rhonda Frank MD - 06/05/2024 9:25 AM EST Referral done * Telephone Encounter - Louann Hatch MA - 06/04/2024 9:58 AM EST Noted. Will follow once referral is sent and appt is booked. * Telephone Encounter - Maxine Wang - 06/03/2024 4:[address] Frank and Louann. I spoke to Kusum at [facility]. She suggested we send a new referral for Dr. Dougherty to review to see if any changes and to address guardianship that was suggested back in 2021. If you agree can you please place a referral order with a little bit of info on moving forward? Thanks Mariya Jarquin * Telephone Encounter - Maxine Kathleen - 06/03/2024 4:08 PM EST ----- Message from Louann Hatch sent at 06/03/2024 1:55 PM EST ----- Mariya, can you please reach out to Kusum at Dr. Barrera's office to see how we can go about helping. See note from 2021 from her that she started the CTR and recommended guardianship be completed. I will call mom once we have an answer from her. Louann ----- Message ----- From: Rhonda Frank MD Sent: 06/03/2024 12:41 PM EST To: # Mom may need help with guardianship paperwork - started it but never completed it she tells me documented in this encounter Plan of Treatment Scheduled Referrals Name Type Priority Associated Diagnoses Order Schedule Ambulatory referral to Neuropsychology Outpatient Referral Routine Kabuki syndrome Intellectual functioning disability Ordered: 06/05/2024 documented as of this encounter Goals Goal Patient Goal Type Associated Problems Recent Progress Patient-Stated? Author Patient has specialist visit scheduled within recommended time frame General Louann Capellan MA Note: Mother will schedule a follow up appointment with Dr. Gupta. [facility] [address] [address] Mom will book follow up Patient has specialist visit scheduled within recommended time frame General Louann Capellan MA Note: Mother will book an appointment with a new Dentist and Senior Net Developer Architect. Genetics recommended [facility] [address] [facility] TONEY Mckee [phone] mom reminded again to book appointment. Patient has specialist visit scheduled within recommended time frame General Louann Capellan MA Note: Mother will book an appointment with an Senior Net Developer Architect. [facility] [address] [facility] [place] [address] [facility] [place] [address] [place] [address] Patient/caregiver will connect with recommended community resources General No Louann Hatch MA Note: Leti has the DDS application. [...] is still active. Mom will then call [facility] and make and appointment with our social work program coordinator Meron. Once that is completed and that section of the paperwork is done and appointment is needed with Dr Matias. Mom and I discussed this in detail. This is a brief summary for her notes. This is in process. Mom still working on getting a respiratory care technician for Chele and mom can not be the programmer or analyst and the legal guardian. PCP entered new referral for Farhat. Mom will follow up on this Patient has specialist visit scheduled within recommended time frame General No Louann Hatch MA Note: Schedule follow up appointment with Dr. Boogie Neurology [phone] option 6 to reschedule. [address] Mom will book Neurology appointment Patient [...] up with Dr. Verdin Dermatology. Due now. [phone] Patient has specialist visit scheduled within recommended time frame General Louann Capellan MA Note: Schedule a follow up with Speech and Hearing. Due now. [phone] Mom will keep appointment. He will need a hearing evaluation. He is not wearing hearing aids. Patient has specialist visit scheduled within recommended time frame General No Louann Hatch MA Note: Schedule a follow up with Dr. Doe- Ophthalmology Due now. His office is booking into September 2024 so call now. [phone] Patient has specialist visit scheduled within recommended time frame General No Louann Hatch MA Note: Mom will schedule a follow up with Hematology for 07/2024. Will need repeat labs prior to the appointment. Dr. Bradford [address] [place], [place] [id number] Patient/family is comfortable self-managing illnesses and chronic [...] so she can be his legal guardian. [facility] [place] [place] will track new referral [...] Louann Hatch MA Note: Mom picked up Cheel's hearing aids back in November 2022. He needs a follow up. [facility] will track new referral sent 05/2024. Chele is not wearing his hearing aids. 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
--- OUTSIDE RECORDS SUMMARY | 2024-07-01 15:19 | XMS_ITS | Encounter Summary ---
Author Organization [facility] Address [address] [place] [address] Phone Care Team Providers Care Manager Meat Name Role Phone Rhonda Frank MD Primary Care Provider Encounter Details Date Type Department Care Team (Late st Contact Info) Description 04/09/2011 Documentation [facility] [place] [address] [place] [address] Family Medicine, Physician [address] [place], [place] [phone] Social History Tobacco Use Types Packs/Day Years [...] filedocumented in this encounter Care Teams Manager Meat Relationship Specialty Start Date End Date Rhonda Frank MD [address] [place] [address] PCP - General Pediatrics 08/28/23 Avtar Alcantara MD Consulting Physician Urology 03/12/18 documented as of this encounter
--- OUTSIDE RECORDS SUMMARY | 2024-07-01 15:19 | XMS_ITS | Encounter Summary ---
Author Organization [facility] Address [address] [place] [phone] Phone Care Team Providers Care Zigzag Machine Operator Name Role Phone Rhonda Frank MD Primary Care Provider Encounter Details Date Type Department Care Team (Late st Contact Info) Description 12/07/2016 Documentation [facility] [place] Family Medicine [address] [place] [address] Family Medicine, Physician [address], [place] [id number] Social History Tobacco Use Types Packs/Day Years [...] on filedocumented in this encounter Care Teams Zigzag Machine Operator Relationship Specialty Start Date End Date Rhonda Frank MD [address] [place] [address] PCP - General Pediatrics 08/28/23 Avtar Alcantara MD Consulting Physician Urology 03/12/18 documented as of this encounter
--- OUTSIDE RECORDS SUMMARY | 2024-07-01 15:19 | XMS_ITS | Encounter Summary ---
Author Organization [facility] Address [address] [place] [address] Phone Care Team Providers Care Music Arranger Name Role Phone Rhonda Frank MD Primary Care Provider [phone] Encounter Details Date Type Department Care Team ([facility] Contact Info) Description 12/27/2016 Conversion Encounter [facility] [address] [place] [address] Social History Tobacco Use Types Packs/Day Years [...] on filedocumented in this encounter Care Teams Music Arranger Relationship Specialty Start Date End Date Rhonda Frank MD [address] [place] [address] PCP - General Pediatrics 08/28/23 Avtar Alcantara MD Consulting Physician Urology 03/12/18 documented as of this encounter
--- NOTE | 2024-07-02 10:46 | MHC.AU.HA3 ---
Hearing Instrument Follow-Up- Binaural Date of Visit: 07/01/24 Right Ear: Make, Model, Color, Serial Number: Oticon OPN Play 1 PP BTE SN: [id number] Color: Green LOST SN: [id number] [employer] Warranty: 11/22/2023 [employer] Loss and Damage Warranty: USED [facility] Service Plan: 12/20/2019 Battery Size: 13 Earmold/Dome/CShell/SlimTip:MicroSonic M45 Half Shell Dispensed By: [facility] Date of Fittin12/19/2018 Left Ear: Make, Model, Color, Serial Number: Oticon OPN Play 1 PP BTE SN: [id number] Color: Green LOST SN: [id number] [employer] Rep[employer] Warranty: 11/22/2023 [employer] Cable Loss and Damage Warranty: USED [facility] Service Plan: 12/20/2019 Battery Size: 13 Earmold/Dome/CShell/SlimTip: MicroSonic M45 Half Shell Dispensed By: [facility] Date of Fittin12/19/2018 Follow-Up Summary: Accompanied by mother, Braydon. Updated hearing test - see audio. Decrease in left ear, recommended follow up with ENT. Still not wearing HAs. Recently had IEP meeting and school is encouraging more use especially for safety/awareness purposes. Chele has difficulty articulating why he does not use them. Cleaned HAs/EMs. Tubes still clean and flexible. Ultimately reported they are too loud. Reprogrammed to updated test then decreased to AM1. Chele reported good sound quality in office and agreed to wear more consistently. Explained to mom settings are not ideal for hearing loss but will plan to slowly ease back into amplification. Recommendations: Hearing instrument follow-up or maintenance as needed. Please contact our clinic with any questions or concerns. Diagnosis Code(s): Primary Diagnosis: H90.A32 Mixed HL, Unilateral, Left Ear, W/Restricted Contralateral Secondary Diagnosis: H90.A21 SNHL, Unilateral Right Ear, W/Restricted Contralateral Hearing Signature: Provider: David Holland, [facility]
== END 2024-07-01 15:15 | disposition home or self-care (01) ==
LOC: HO.SH 15:14
PROVIDERS: Visit Provider Pediatrics
DX: Z01.118 Encounter for examination of ears and hearing with other abnormal findings (principal); Z46.1 Encounter for fitting and adjustment of hearing aid; H90.A32 Mixed conductive and sensorineural hearing loss, unilateral, left ear with restricted hearing on the contralateral side; H90.A21 Sensorineural hearing loss, unilateral, right ear, with restricted hearing on the contralateral side
CPT/HCPCS: 92557; 92567; 92593